=== PATIENT | female | born 1985 | race Caucasian/White ===

== ENCOUNTER 2019-08-06 14:31 | Emergency (ER) | payer OTHER, SELFPAY ==
--- NOTE | 2019-08-06 15:19 | ED.ABDPAIN ---
HPI - Abdominal Pain General Chief Complaint: Nausea/Vomiting/Diarrhea Stated Complaint: N/V Time Seen by Provider: 08/06/19 14:41 Source: patient Mode of arrival: ambulatory Limitations: no limitations History of Present Illness HPI narrative: Patient is a 33-year-old female who presents to emergency department for evaluation of nausea and vomiting that began this morning with several episodes of each patient denies any pain fever similar occurrence. Patient attempted Zofran with no improvement patient on arrival notes some mild dyspepsia but denies other complaints. Related Data Allergies Allergy/AdvReac Type Severity Reaction Status Date / Time azithromycin Allergy Unknown Verified 08/06/19 15:26 Review of Systems Review of Systems: All systems reviewed & are unremarkable except as noted in HPI and below PMFSH Social History Social History (Updated 08/06/19 @ 15:20 by Pranay Burks PA-C) Smoking status: Never smoker Gender identity (if verbalized by the patient): Female Exam Narrative: Exam Narrative: GENERAL: Well-appearing, well-nourished, and in no acute distress. HEAD: Normocephalic, atraumatic. EYES: PERRLA and EOMI. ENT: Nares clear, no rhinorrhea or epistaxis. Mucous membranes moist. Oropharynx without tonsillar hypertrophy exudate or other lesions. CHEST: Clear to auscultation. No respiratory distress. No wheezes rales or rhonchi HEART: Regular rate and rhythm. No murmur heard. Normal peripheral pulses. ABDOMEN: Soft, nontender, nondistended EXTREMITIES: Normal range of motion. No edema. SKIN: Warm, dry, no rash. NEURO: No focal deficits. Alert and oriented x3. PSYCH: Normal mood and affect. Course Course Emergency Course: Patient in the room in no distress aware of case findings treatment plan and diagnosis resting comfortably in the room tolerating p.o. intake denying any pain Vital Signs Vital signs: Vital Signs Temperature 100 F H 08/06/19 15:23 Pulse Rate 102 H 08/06/19 15:23 Respiratory Rate 17 08/06/19 15:23 Blood Pressure 127/91 H 08/06/19 15:23 Pulse Oximetry 100 08/06/19 15:23 Temperature 100 F H 08/06/19 15:23 Pulse Rate 89 08/06/19 17:37 Respiratory Rate 16 08/06/19 17:37 Blood Pressure 129/92 H 08/06/19 17:37 Pulse Oximetry 99 08/06/19 17:37 MDM - Abdominal Pain MDM Narrative Medical decision making narrative: Patient in the room afebrile nontoxic-appearing no distress in the room without any high risk changes in the blood work tolerating p.o. intake felt appropriate for outpatient reevaluation patient resting comfortably as noted provided with reasons to return Lab Data Result diagrams: 08/06/19 15:33 08/06/19 15:33 Labs: Lab Results 08/06/19 08/06/19 08/06/19 Range/Units 15:33 15:33 16:50 WBC 8.4 (4.5-10.0) K/mm3 RBC 4.01 L (4.2-5.4) M/mm3 Hgb 13.6 (12.0-15.0) g/dL Hct 40.0 (37.0-47.0) % MCV 99.8 (80-100) fl MCH 33.9 (26-34) pg MCHC 34.0 (32-36) g/dl RDW 14.8 H (11.5-14.5) % Plt Count 271 (150-375) k/mm3 MPV 10.2 (7.4-10.4) fl Immature Gran % (Auto) 0.2 (0-0.5) % Neut % (Auto) 85.8 H (45.5-73.1) % Lymph % (Auto) 7.5 L (18.3-44.2) % [place] % (Auto) 5.5 (2.6-8.5) % Eos % (Auto) 0.0 (0-4.4) % Baso % (Auto) 1.0 (0.2-1.2) % Lymph # (Auto) 0.63 L (0.9-3.2) K/mm3 [place] # (Auto) 0.5 (0.1-0.6) K/mm3 Eos # (Auto) 0.0 (0-0.3) K/mm3 Baso # (Auto) 0.1 (0.0-0.1) K/mm3 Abs Immat Gran (auto) 0.02 (0.00-0.031) K/mm3 Absolute Neuts (auto) 7.2 H (1.3-6.7) K/mm3 Absolute Nucleated RBC 0.0 (0.0-0.012) K/mm3 Nucleated RBC % 0.0 (0.0-0.2) % Sodium 137 (137-145) mmol/L Potassium 3.2 L (3.4-5.0) mmol/L Chloride 99 (98-107) mmol/L Carbon Dioxide 24 (22-30) mmol/L BUN 3 L (7-17) mg/dL Creatinine 0.50 L (0.7-1.0) mg/dL Estim Creat Clear Calc 148 ml/min Estimated GFR > 60
[2019-08-06] MEDS: FAMOTIDINE 20 MG/2 ML VIAL IV PUSH (15:22)
[2019-08-06] MEDS: ONDANSETRON INJ 4 MG/2 ML VIAL IV PUSH (15:22)
[2019-08-06] MEDS: SODIUM CHLORIDE 0.9% IV 1,000 ML 999 ML IV CONT (15:22)
[2019-08-06 15:23] VITALS: BP 127/91; PULSE 102; RESP 17; TEMP 37.7; O2SAT 100
[2019-08-06 15:42] LABS: Basophils Absolute Auto 0.1 K/mm3 (0.0-0.1); Hemoglobin 13.6 g/dL (12.0-15.0); Immature Granulocyte Absolute 0.02 K/mm3 (0.00-0.031); Immature Granulocyte Percent A 0.2 % (0-0.5); Lymphocytes Absolute Auto 0.63 K/mm3 (0.9-3.2); Lymphocytes Percent Auto 7.5 % (18.3-44.2); Mean Corpuscular Hemoglobin 33.9 pg (26-34); Mean Corpuscular Volume 99.8 fl (80-100); Mean Platelet Volume 10.2 fl (7.4-10.4); Monocytes Absolute Auto 0.5 K/mm3 (0.1-0.6); Monocytes Percent Auto 5.5 % (2.6-8.5); Neutrophils Absolute Auto 7.2 K/mm3 (1.3-6.7); Neutrophils Percent Auto 85.8 % (45.5-73.1); Platelet Count Result 271 k/mm3 (150-375); Red Blood Count 4.01 M/mm3 (4.2-5.4); Red Cell Distribution Width 14.8 % (11.5-14.5); White Blood Count 8.4 K/mm3 (4.5-10.0)
--- NOTE | 2019-08-06 15:47 | PC.NURSE ---
Pt collected urine sample but dropped it on the floor when bringing it back to room. states she will attempt to collect another sample shortly.
[2019-08-06 15:56] LABS: Albumin Level 4.7 g/dL (3.5-5.1)
[2019-08-06 15:57] LABS: Alkaline Phosphatase 91 U/L (38-126); Aspartate Amino Transferase 58 U/L (14-36); Blood Urea Nitrogen 3 mg/dL (7-17); Calcium 9.2 mg/dL (8.4-10.2); Carbon Dioxide 24 mmol/L (22-30); Chloride 99 mmol/L (98-107); Estimated CRCL calculation 148 ml/min; Estimated Glomerular Filt Rate > 60; Glucose 132 mg/dL (65-105); Lipase 105 U/L (23-300); Potassium 3.2 mmol/L (3.4-5.0); Sodium 137 mmol/L (137-145)
[2019-08-06 16:03] LABS: Alanine Aminotransferase 47 U/L (4-35)
[2019-08-06 16:37] VITALS: BP 129/96; PULSE 95; RESP 18; O2SAT 100
[2019-08-06 17:03] LABS: Add Urine Microscopic? NO; Appearance Urine Clear (Clear); Bilirubin Urine Negative (Negative); Blood Urine Negative (Negative); Color Urine Yellow (Yellow); Glucose Urine UA Negative (Negative); Ketones Urine Negative (Negative); Leukocyte Esterase Ur Negative LEU/UL (Negative); Nitrate Urine Negative (Negative); Protein Urine Negative (Negative); Specific Grav Ur 1.015 (1.001-1.035); Urobilinogen Urine Negative mg/dL (<2.0)
--- NOTE | 2019-08-06 17:22 | PC.NURSE ---
Pt tolerating PO challenge well, denies further nausea.
[2019-08-06 17:23] VITALS: BP 119/82; PULSE 93; RESP 18; O2SAT 99
[2019-08-06 17:37] VITALS: BP 129/92; PULSE 89; RESP 16; O2SAT 99
[2019-08-06] MEDS: ONDANSETRON INJ 4 MG/2 ML VIAL (18:01)
--- NOTE | 2019-08-06 18:01 | PC.NURSE ---
PT GIVEN ZOFRAN AT THIS TIME PRIOR TO D/C PER VERBAL ORDER FROM JOSSELYN HUNTER FOR NAUSEA. NEEMA HUNTER AT BEDSIDE AT THIS TIME.
[2019-08-06 18:02] VITALS: BP 129/89; PULSE 89; RESP 16; O2SAT 100
--- NOTE | 2019-08-10 18:43 | PC.NURSE ---
LATE ENTRY This note is being entered to document information to the patient's record. The following information was omitted on [08/06/2019], by [CESARIO]. NS COMPLETE AT 1622.
== END 2019-08-06 18:02 | disposition home or self-care (01) ==
PROVIDERS: Emergency Medicine Emergency Medical Services; Emergency Provider Emergency Medicine; PCP Emergency Medicine
DX: R11.2 Nausea with vomiting, unspecified (principal)
CPT/HCPCS: 36415; 80053; 81003; 83690; 85025; 87804; 96361; 96374; 96375; 96376; 99284; J2405; J7030

== ENCOUNTER 2019-08-25 13:32 | Emergency (ER) | payer OTHER, SELFPAY ==
[2019-08-25 13:55] VITALS: BP 121/98; PULSE 108; RESP 20; TEMP 37.6; O2SAT 99
--- NOTE | 2019-08-25 14:21 | ED.GENADULT ---
HPI - General Adult General Chief complaint: Upper Respiratory Infection Stated complaint: Cough/Wheezing/Pain w/breathing Time Seen by Provider: 08/25/19 14:21 Source: patient and RN notes reviewed Mode of arrival: ambulatory Limitations: no limitations History of Present Illness HPI narrative: 33-year-old female presents with complains of upper respiratory infection symptoms, sore throat, nausea, and cough for 1 day. Advil and Zofran without relief. Constant dry cough with intermittent productive cough (green phlegm). Rhinorrhea and nasal congestion. Sore throat is intermittently and bilateraly. Hurts to swallow. No voice changes. No high fevers, drooling, neck or throat swelling. No chest pain, wheezing, or shortness of breath. Exacerbation factors consists of smoke exposure. Nausea without vomiting and abdominal pain. Tolerating liquids well. Valorie denies being , LMP 07/26/2019. Some parts of this dictation were generated by voice recognition software and may contain typographical and/or grammatical inaccuracies. Related Data Allergies Allergy/AdvReac Type Severity Reaction Status Date / Time azithromycin Allergy Unknown Verified 08/25/19 13:54 Review of Systems Review of Systems: Narrative: CONSTITUTIONAL: Denies fever, chills, sweats. EYES: Denies visual changes, redness, discharge. ENT: Complains of rhinorrhea, congestion, sore throat. Denies otalgia. CARDIOVASCULAR: Denies chest pain, palpitations, edema. RESPIRATORY: Denies dyspnea, wheezing. Complains of dry cough, intermittent productive cough. GASTROINTESTINAL: Denies abdominal pain, vomiting, diarrhea. Complains of nausea. GENITOURINARY: Denies dysuria, hematuria, abnormal discharge. SKIN: Denies rash or itching. MUSCULOSKELETAL: Denies acute back pain, joint pain, or myalgia. NEUROLOGIC: Denies numbness or focal weakness. PSYCHIATRIC: Denies anxiety or depression. All systems reviewed & are unremarkable except as noted in HPI and below. [facility] Past Medical History Medical History (Updated 08/26/19 @ 00:00 by Background Dajessica) Anxiety Chronic sinus infection Depression History of gastroesophageal reflux (GERD) Surgical History Surgical History (Updated 08/25/19 @ 14:39 by RAMANDEEP May) No significant past surgical history Family History Family History (Updated 08/25/19 @ 14:40 by RAMANDEEP May) Mother Lung cancer Father , Patient said was murdered found out doing autopsy he had cancer Cancer Social History Social History (Updated 08/25/19 @ 14:41 by RAMANDEEP May) Smoking packs per day: 0.25 Smoking cigarettes per day: 5.0 Years smoked: 18 Smoking pack-years: 4.50 Smoking status: Current every day smoker Second hand tobacco smoke exposure: Yes Alcohol intake: current Substance use: current Substance use type: marijuana Living arrangements: with family Occupation/Education: occupation Gender identity (if verbalized by the patient): Female Comments At time of signature, agree with nurse past medical, surgical, social, and family history. There is no relevant family history pertinent to the presenting complaint. Exam Narrative: Exam Narrative: GENERAL: This is a well-nourished, well-developed patient, in no apparent distress. Talks in full sentences and ambulates with steady gait without dyspnea. HEAD: normocephalic, atraumatic. EYES: PERRL. Sclera clear/white. Vision is grossly intact. EARS: External ears normal, auditory canals clear and without drainage, TMs normal without perforation. Hearing grossly intact. NOSE: External nose normal with no obvious nasal discharge, nares with moderate redness and enlarged turbinates, clear rhinorrhea. THROAT: Mucous membranes moist, posterior pharynx with PND, mild erythema, no exudate, and normal tonsils. No drainage, no concern for Peritonsillar abscess. No drooling, trismus, or neck swelling. NECK:
[2019-08-25 14:46] VITALS: PULSE 89; RESP 20; O2SAT 99
== END 2019-08-25 14:44 | disposition home or self-care (01) ==
PROVIDERS: Emergency Provider Nurse Practitioner Family; PCP Emergency Medicine
DX: J40 Bronchitis, not specified as acute or chronic (principal); F17.210 Nicotine dependence, cigarettes, uncomplicated; K21.9 Gastro-esophageal reflux disease without esophagitis
CPT/HCPCS: 87804; 99213; G0463

== ENCOUNTER 2019-11-25 19:15 | Observation (INO) | payer OTHER, SELFPAY ==
--- NOTE | ~2019-11-25 | CT_ITS ---
EXAMINATION: CT abdomen pelvis w con EXAM DATE: 11/25/2019 21:33 INDICATION: Vomiting, diarrhea, elevated lipase. TECHNIQUE: Spiral CT of the abdomen and pelvis was performed following intravenous injection of 100 m L Omnipaque 350. Axial, coronal and sagittal images were reviewed. The dose-length product (DLP) fo r this examination was 265.93 mGy-cm. The exposure was tailored according to patient size (auto mA e xposure control), and iterative reconstruction (ASIR) was used as additional dose reduction technique . Comparison is made to prior examination from 09/06/2018. FINDINGS: There is hepatic steatosis without suspicious focal lesion identified. Spleen, adrenal glan ds, pancreas are unremarkable. There are punctate cholelithiasis. No biliary dilation. Portal and s plenic veins are patent. Kidneys enhance symmetrically. There is no hydronephrosis. The uterus is anteverted and morphologically normal. The bladder is unremarkable. There is no retroperitoneal o r pelvic lymphadenopathy. The appendix is normal. The stomach and small bowel are unremarkable. Possible mild colitis with mi ldly edematous appearing colonic wall No free intraperitoneal gas. The heart is normal in size. There are no pericardial or pleural effusions. Partially calcified left thyroid lobe benign nodule u nchanged. There are no osteoblastic or osteolytic lesions identified. IMPRESSION: 1. Possible mild colonic colitis, clinical correlation. 2. Hepatic steatosis. Reviewed, dictated and finalized at location A.
[2019-11-25 19:21] VITALS: BP 123/89; PULSE 106; RESP 16; TEMP 36.6; O2SAT 100
[2019-11-25 19:52] LABS: Basophils Absolute Auto 0.1 K/mm3 (0.0-0.1); Basophils Percent Auto 0.7 % (0.2-1.2); Eosinophils Absolute Auto 0.2 K/mm3 (0-0.3); Eosinophils Percent Auto 1.5 % (0-4.4); Immature Granulocyte Absolute 0.07 K/mm3 (0.00-0.031); Immature Granulocyte Percent A 0.5 % (0-0.5); Lymphocytes Absolute Auto 1.94 K/mm3 (0.9-3.2); Lymphocytes Percent Auto 12.8 % (18.3-44.2); Mean Corpuscular HGB Conc 35.9 g/dl (32-36); Mean Corpuscular Hemoglobin 35.9 pg (26-34); Mean Platelet Volume 10.7 fl (7.4-10.4); Neutrophils Absolute Auto 10.8 K/mm3 (1.3-6.7); Neutrophils Percent Auto 71.5 % (45.5-73.1); Platelet Count Result 346 k/mm3 (150-375); Red Cell Distribution Width 18.4 % (11.5-14.5); White Blood Count 15.1 K/mm3 (4.5-10.0)
[2019-11-25 20:07] LABS: Albumin Level 4.8 g/dL (3.5-5.1); Alkaline Phosphatase 103 U/L (38-126); Aspartate Amino Transferase 128 U/L (14-36); Bilirubin,Total 0.9 mg/dL (0.2-1.3); Blood Urea Nitrogen 3 mg/dL (7-17); Calcium 8.3 mg/dL (8.4-10.2); Carbon Dioxide 30 mmol/L (22-30); Chloride 85 mmol/L (98-107); Estimated Glomerular Filt Rate > 60; Glucose 126 mg/dL (65-105); Potassium 2.6 mmol/L (3.4-5.0); Sodium 131 mmol/L (137-145)
[2019-11-25 20:11] LABS: Alanine Aminotransferase 34 U/L (4-35)
[2019-11-25 20:12] LABS: Lipase 2318 U/L (23-300)
--- NOTE | 2019-11-25 20:48 | PC.NURSE ---
Called lab to add on PT INR PTT MG
[2019-11-25 21:01] LABS: Prothrombin Time 13.3 Seconds (11.1-14.7)
[2019-11-25 21:02] LABS: Partial Thromboplastin Time 26.6 SECONDS (22.3-36.8)
[2019-11-25 21:05] LABS: Magnesium 0.9 mg/dL (1.6-2.3)
--- NOTE | 2019-11-25 21:11 | ED.NAVMDI ---
HPI - Nausea/Vomiting/Diarrhea General Chief complaint: Nausea/Vomiting/Diarrhea Stated complaint: diarrhea Time Seen by Provider: 11/25/19 20:08 Source: patient Mode of arrival: ambulatory Limitations: no limitations History of Present Illness HPI Narrative: This patient is a 34 year old female who presents for evaluation of nausea, vomiting and diarrhea. Patient states she has has been vomiting daily for 2-3 weeks. She has been unable to keep any thing down except occasional water. She also reports daily nonbloody diarrhea. She has been taking oral zofran, antidiarrhea , and probiotics without relief. She states she thought her symptoms were due to her alcoholism so she drank a couple of shots of alcohol yesterday. Prior to yesterday she states she has not drank in 2 days. She states she has been cutting back on her alcohol intake. She denies fever, chills, abdominal pain. She also denies recent antibiotics use. MD elicited complaint: nausea, vomiting and diarrhea Pertinent past history: alcohol abuse Associated nausea: Yes Associated abdominal pain: No Location of pain: none Related Data Home Medications Medication Instructions Recorded Confirmed cetirizine [Zyrtec] 20 mg PO HS 11/26/19 11/26/19 chlordiazepoxide HCl 5 mg PO Q8H PRN 11/26/19 11/26/19 fluticasone propionate [Flonase 1 spray [facility] 11/26/19 11/26/19 Allergy Relief] fluticasone propionate [Flonase 2 spray [facility] HS 11/26/19 11/26/19 Allergy Relief] loperamide 2 mg PO Q6H PRN 11/26/19 11/26/19 magnesium 500 mg PO DAILY 11/26/19 11/26/19 ondansetron HCl [Zofran] 4 mg PO Q6H PRN 11/26/19 11/26/19 potassium chloride 20 meq PO DAILY 11/26/19 11/26/19 Allergies Allergy/AdvReac Type Severity Reaction Status Date / Time azithromycin Allergy Intermediate Rash Verified 11/26/19 04:00 Review of Systems Review of Systems: All systems reviewed & are unremarkable except as noted in HPI and below Constitutional: Constitutional: Denies chills and Denies fever(s) Gastrointestinal: Gastrointestinal: Denies abdominal pain, Reports diarrhea, Reports nausea and Reports vomiting Genitourinary: Genitourinary: Denies hematuria and Denies flank pain Musculoskeletal: Musculoskeletal: Denies back pain Psychiatric: Psychiatric: Reports anxiety PMFSH Past Medical History Medical History (Updated 11/26/19 @ 06:09 by Yadira Hall MD) Alcoholism Hypokalemia Family History Family History (Updated 11/26/19 @ 00:19 by Brandan Bustillos RN) Mother Cancer of lung Cerebrovascular accident Father Heart attack Mother No problems noted. Other No problems noted. Social History Social History (Updated 11/25/19 @ 21:12 by Yadira Hall MD) Smoking packs per day: 1 Smoking cigarettes per day: 20.0 Years smoked: 19 Smoking pack-years: 19.00 Smoking status: Current every day smoker Tobacco type: cigarettes Alcohol intake: current Drinks per week: 14 Alcohol use details: alcoholic Substance use: never Gender identity (if verbalized by the patient): Female Spiritual care concerns: No Exam Narrative: Exam Narrative: GENERAL: Well-appearing, well-nourished, and in no acute distress. HEAD: Normocephalic, atraumatic EYES: PERRLA and EOMI, conjunctiva clear without discharge EARS: TM's clear bilaterally without erythema or dullness NOSE: Nares clear, no rhinorrhea or epistaxis THROAT:Mucous membranes moist, Oropharynx normal without erythema, exudate, peritonsillar swelling or fluctuance NECK: Supple, without lymphadenopathy or mass RESPIRATORY: No respiratory distress, Airway patent, Respirations non-labored, Clear to auscultation without rales, rhonchi or wheeze HEART: Regular rate and rhythm. No murmur heard. Normal peripheral pulses. ABDOMEN: Soft, nontender, nondistended, normal active bowel sounds. No masses. No rebound or guarding, No organomegaly. EXTREMITIES: No edema, normal stre
[2019-11-25 21:14] LABS: Add Urine Microscopic? YES; Amorphous Sediment Urine Few; Appearance Urine Cloudy (Clear); Bacteria Urine Trace /hpf; Bilirubin Urine Negative (Negative); Blood Urine 1+ (Negative); Color Urine Yellow (Yellow); Glucose Urine UA Negative (Negative); Hyaline Casts Urine 20-29 /lpf; Ketones Urine Negative (Negative); Leukocyte Esterase Ur 2+ LEU/UL (Negative); Mucus Urine Rare /lpf; Nitrate Urine Negative (Negative); Protein Urine 1+ mg/dL (Negative); Specific Grav Ur 1.013 (1.001-1.035); Squamous Epithelial Cell Urine Many /hpf (Few); Urobilinogen Urine Negative mg/dL (<2.0); WBC Urine 21-30 /hpf
[2019-11-25] MEDS: ONDANSETRON INJ 4 MG/2 ML VIAL IV PUSH (21:54)
[2019-11-25] MEDS: LACTATED RINGERS 1,000 ML 999 ML IV CONT (21:54)
[2019-11-25 21:55] VITALS: BP 119/91; BP 120/93; PULSE 102; PULSE 87
[2019-11-25 21:57] VITALS: BP 109/86; PULSE 103
--- NOTE | 2019-11-25 22:02 | ECG_ITS ---
Measurements Intervals [place] Rate: 89 P: 55 AL: 120 QRS: 28 QRSD: 102 T: -56 QT: 439 QTc: 536 Interpretive Statements SINUS RHYTHM POSSIBLE LEFT ATRIAL ENLARGEMENT LOW QRS VOLTAGE IN PRECORDIAL LEADS ST-T WAVE ABNORMALITY IN ANTEROLATERAL LEADS- CONSIDER ISCHEMIA BASELINE ARTIFACT- I, II, AVR, V2 ABNORMAL ECG Electronically Signed On 11-26-2019 6:43:32 CDT by Alex Santiago D.O.
[2019-11-25 23:00] VITALS: BP 104/78; PULSE 79; RESP 18; TEMP 36.6; O2SAT 100; BMI 23.3
--- NOTE | 2019-11-25 23:54 | ADMGEN ---
This patient, Valorie Garcia, was admitted to [facility] Surg Room 305-01. Patient/family oriented to hospital policies and general routines including ID bracelet, bed and alarms, visiting hours, pain management, procedures, bathroom and other care routines, personal items, smoking policy, room service/diet, and visiting hours. Valuables list has been completed. Information on how to activate the Rapid Response Team has been discussed. Patient/Family are encouraged to report perceived risks to care and to ask questions if they do not understand what they are told or what they should do.
[2019-11-26] VITALS (10 sets, daily range): BP systolic 78–110; BP diastolic 50–59; PULSE 80–99; RESP 16; TEMP 36.3–37.1; O2SAT 99–100; BMI 23.3
[2019-11-26] MEDS: MAGNESIUM SULF 2 GM/WATER 50ML 2 GM/50 ML BAG IVPB (03:50)
[2019-11-26] MEDS: CHLORDIAZEPOXIDE 5 MG CAPSULE PO (04:46)
[2019-11-26] MEDS: LORATADINE 10 MG TABLET PO ×2 (05:14→23:40)
[2019-11-26 06:11] LABS: Basophils Absolute Auto 0.1 K/mm3 (0.0-0.1); Basophils Percent Auto 0.5 % (0.2-1.2); Eosinophils Absolute Auto 0.3 K/mm3 (0-0.3); Eosinophils Percent Auto 3.4 % (0-4.4); Hematocrit 31.2 % (37.0-47.0); Immature Granulocyte Absolute 0.04 K/mm3 (0.00-0.031); Immature Granulocyte Percent A 0.4 % (0-0.5); Lymphocytes Absolute Auto 1.85 K/mm3 (0.9-3.2); Lymphocytes Percent Auto 19.4 % (18.3-44.2); Mean Corpuscular HGB Conc 35.3 g/dl (32-36); Mean Corpuscular Hemoglobin 35.8 pg (26-34); Mean Corpuscular Volume 101.6 fl (80-100); Mean Platelet Volume 10.7 fl (7.4-10.4); Monocytes Absolute Auto 1.2 K/mm3 (0.1-0.6); Monocytes Percent Auto 12.4 % (2.6-8.5); Neutrophils Absolute Auto 6.1 K/mm3 (1.3-6.7); Neutrophils Percent Auto 63.9 % (45.5-73.1); Platelet Count Result 228 k/mm3 (150-375); Red Blood Count 3.07 M/mm3 (4.2-5.4); Red Cell Distribution Width 17.9 % (11.5-14.5); White Blood Count 9.5 K/mm3 (4.5-10.0)
[2019-11-26 06:19] LABS: Calcium 7.2 mg/dL (8.4-10.2); Carbon Dioxide 29 mmol/L (22-30); Chloride 90 mmol/L (98-107); Estimated CRCL calculation 97 ml/min; Estimated Glomerular Filt Rate > 60; Glucose 116 mg/dL (65-105); Potassium 2.5 mmol/L (3.4-5.0); Sodium 129 mmol/L (137-145)
[2019-11-26 06:38] LABS: Blood Urea Nitrogen < 2 mg/dL (7-17)
[2019-11-26] MEDS: LACTATED RINGERS 1,000 ML 125 ML IV CONT ×2 (08:49→22:59)
[2019-11-26] MEDS: POTASSIUM CHLORIDE 20 MEQ PACKET (FOR LIQUID) 40 MEQ PO ×2 (08:50→10:34)
[2019-11-26] MEDS: FLUTICASONE PROPIONATE 0.05% NA SPR 16 GM BTL (*BKC) 1 SPRAY NASAL (08:50)
[2019-11-26] MEDS: PANTOPRAZOLE SODIUM IV 40 MG VIAL IV PUSH (08:51)
[2019-11-26] MEDS: POTASSIUM CHLORIDE 20 MEQ PACKET (FOR LIQUID) PO (08:51)
--- NOTE | 2019-11-26 11:43 | PM.IMHP ---
H&P: HPI History of Present Illness Chief complaint: Vomiting and diarrhea Narrative: Date of Service 11/26/2019 1115 The supervising physician for this history and physical is Dr Daiana Gibbs. Ms. Garcia is a 34yo F with history of alcohol use disorder and anxiety with panic attacks presented to the ED for evaluation of vomiting and diarrhea. She noted she has been vomiting daily, sometimes multiple times per day for the last 3 to 4 weeks. She describes some intermittent upper abdominal pain. She also describes nonbloody diarrhea over the last few weeks as well. She denies chest pain or shortness of breath. She reports she has already eaten breakfast this morning and denies feeling nauseous. She reports a history of excess alcohol use previously drinking 14 shots of whiskey daily, now has cut back to 2 to [address] abdomen demonstrates mild colitis. Lipase 2318. Potassium was as low as 2.5 this morning and being replaced orally and IV. She is being admitted for colitis and hypokalemia. Patient is adamant about discharging today. Discussed the reasons why it would be safest to keep her overnight to monitor electrolytes and lipase in AM, monitor for symptoms. Risks of leaving against medical advice were discussed. She is agreeable to staying overnight. Review of Systems Review of Systems: Narrative: Nausea, vomiting, and nonbloody diarrhea. No nausea today after eating. No chest pain or shortness of breath. Upper abdominal discomfort. No headaches, speech, or vision changes. No dark black or red bloody stools or emesis. Twelve systems were reviewed with pertinent positives and negatives as per HPI. Except as documented, all other systems were reviewed and are negative. [facility] Past Medical History Medical History (Updated 11/26/19 @ 17:28 by Alix Burr PA-C) Alcoholism Hypokalemia Panic attacks Family History Family History Mother Cancer of lung Cerebrovascular accident Father Heart attack Mother No problems noted. Other No problems noted. Social History Social History (Updated 11/26/19 @ 17:15 by Alix Burr PA-C) Social History: Ms. 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 She reports previously drinking around 14 shots per day of Fireball whiskey and has now cut back to 2 to 4 shots daily. She is smoking 1 half pack per day of cigarettes since age 15 years old. She denies other substance use. Her PCP is Dr Stevenson. She is full code status. Smoking packs per day: 1 Smoking cigarettes per day: 20.0 Years smoked: 19 Smoking pack-years: 19.00 Smoking status: Current every day smoker Tobacco type: cigarettes Alcohol intake: current Drinks per week: 14 Alcohol use details: alcoholic Substance use: never Occupation/Education: occupation Gender identity (if verbalized by the patient): Female Spiritual care concerns: No Meds Home Medications and Allergies Home Medications Medication Instructions Recorded Confirmed Type cetirizine [Zyrtec] 20 mg PO HS 11/26/19 11/26/19 History chlordiazepoxide HCl 5 mg PO Q8H PRN 11/26/19 11/26/19 History fluticasone propionate [Flonase 1 spray [facility] 11/26/19 11/26/19 History Allergy Relief] fluticasone propionate [Flonase 2 spray [facility] 11/26/19 11/26/19 History Allergy Relief] loperamide 2 mg PO Q6H PRN 11/26/19 11/26/19 History magnesium 500 mg PO DAILY 11/26/19 11/26/19 History ondansetron HCl [Zofran] 4 mg PO Q6H PRN 11/26/19 11/26/19 History potassium chloride 20 meq PO DAILY 11/26/19 11/26/19 History Allergies Allergy/AdvReac Type Severity Reaction Status Date / Time azithromycin Allergy Intermediate Rash Verified 11/26/19 04:00 Vital Signs Last Vital Signs Temp 97.4 F L 11/26/19 14:48 Pulse 88 11/26/19 16:00 Resp 16 11/26/19 14:48 BP 78/50 L 11/26/19 14:48
[2019-11-26 12:46] LABS: Calcium 7.7 mg/dL (8.4-10.2); Carbon Dioxide 28 mmol/L (22-30); Chloride 99 mmol/L (98-107); Estimated CRCL calculation 97 ml/min; Estimated Glomerular Filt Rate > 60; Glucose 120 mg/dL (65-105); Potassium 4.3 mmol/L (3.4-5.0); Sodium 135 mmol/L (137-145)
[2019-11-26 12:48] LABS: Blood Urea Nitrogen < 2 mg/dL (7-17)
[2019-11-26] MEDS: LACTATED RINGERS 500 ML 999 ML IV CONT (14:30)
[2019-11-26] MEDS: FLUTICASONE PROPIONATE 0.05% NA SPR 16 GM BTL (*BKC) 2 SPRAY NASAL (21:04)
[2019-11-26] MEDS: ENOXAPARIN 40 MG/0.4 ML SYRINGE SUB-Q (21:04)
[2019-11-26] MEDS: SODIUM CHLORIDE 0.9% IV 500 ML IV CONT (22:54)
[2019-11-27] VITALS: BP 89/60; PULSE 82; PULSE 88
[2019-11-27 02:33] VITALS: BP 114/82; PULSE 83
[2019-11-27 04:00] VITALS: PULSE 84
[2019-11-27 05:45] LABS: Basophils Absolute Auto 0.1 K/mm3 (0.0-0.1); Basophils Percent Auto 0.7 % (0.2-1.2); Eosinophils Absolute Auto 0.5 K/mm3 (0-0.3); Eosinophils Percent Auto 5.6 % (0-4.4); Hematocrit 31.3 % (37.0-47.0); Hemoglobin 10.6 g/dL (12.0-15.0); Immature Granulocyte Absolute 0.04 K/mm3 (0.00-0.031); Immature Granulocyte Percent A 0.4 % (0-0.5); Lymphocytes Absolute Auto 1.81 K/mm3 (0.9-3.2); Lymphocytes Percent Auto 20.2 % (18.3-44.2); Mean Corpuscular HGB Conc 33.9 g/dl (32-36); Mean Corpuscular Hemoglobin 35.2 pg (26-34); Mean Platelet Volume 10.4 fl (7.4-10.4); Monocytes Percent Auto 11.6 % (2.6-8.5); Neutrophils Absolute Auto 5.5 K/mm3 (1.3-6.7); Neutrophils Percent Auto 61.5 % (45.5-73.1); Platelet Count Result 229 k/mm3 (150-375); Red Blood Count 3.01 M/mm3 (4.2-5.4); Red Cell Distribution Width 17.7 % (11.5-14.5)
[2019-11-27 06:00] VITALS: BP 99/66; PULSE 74; RESP 16; TEMP 36.5; O2SAT 100
[2019-11-27 06:03] LABS: Alanine Aminotransferase 15 U/L (4-35); Albumin Level 2.7 g/dL (3.5-5.1); Alkaline Phosphatase 65 U/L (38-126); Aspartate Amino Transferase 37 U/L (14-36); Bilirubin,Total 0.3 mg/dL (0.2-1.3); Carbon Dioxide 27 mmol/L (22-30); Chloride 102 mmol/L (98-107); Estimated CRCL calculation 114 ml/min; Estimated Glomerular Filt Rate > 60; Glucose 100 mg/dL (65-105); Magnesium 1.2 mg/dL (1.6-2.3); Phosphorus 2.6 mg/dL (2.5-4.5); Potassium 3.1 mmol/L (3.4-5.0); Sodium 135 mmol/L (137-145)
[2019-11-27 06:08] LABS: Blood Urea Nitrogen < 2 mg/dL (7-17)
[2019-11-27] MEDS: FLUTICASONE PROPIONATE 0.05% NA SPR 16 GM BTL (*BKC) 1 SPRAY NASAL (08:22)
[2019-11-27] MEDS: PANTOPRAZOLE SODIUM IV 40 MG VIAL IV PUSH (08:22)
[2019-11-27] MEDS: POTASSIUM CHLORIDE 20 MEQ PACKET (FOR LIQUID) PO (08:25)
[2019-11-27 08:53] LABS: Lipase 2216 U/L (23-300)
--- NOTE | 2019-11-27 10:24 | PM.DS ---
DS: Admitting Diagnosis Admitting Diagnosis Admitting Diagnosis: Noninfective gastroenteritis and colitis, unspecified DS: Discharge Diagnosis Discharge Diagnosis (1) Colitis: Code(s): K52.9 - Noninfective gastroenteritis and colitis, unspecified Status: Acute Assessment and Plan: Date of Service 11/27/19 Ms. Garcia is a 34yo F with history of alcohol use disorder who presented to the ED for evaluation of vomiting and diarrhea x [address] abdomen demonstrated a mild colitis and she was started on IV antibiotics with Zosyn. She was discharged with oral antibiotics to complete the course. Lipase was elevated but pancreas was unremarkable on imaging; elevated lipase may have been reactive from recent vomiting. She was tolerating a diet and had no vomiting during this admission. Diarrhea was nonbloody, sent for culture which have come back negative. She was very eager to discharge and wanting to leave AMA but opted to stay overnight to continue treatment of her hypokalemia and dehydration. Potassium and magnesium were aggressively replaced. She was treated supportively with IV fluids and antiemetics. She described drinking around 2 to 4 shots daily of whiskey, decreased from her previous 14 shots per day. No acute withdrawal here. She was educated on the importance of alcohol cessation. She was feeling improved with the therapy outlined above and was hemodynamically stable for discharge 11/27/19. She was instructed to follow up with PCP in 1 week and discussed that if her symptoms persist after antibiotic treatment, she may benefit from GI referral given the duration of her symptoms. Patient presents with diarrhea and vomiting for multiple weeks. CT abdomen demonstrates a mild colitis Stool studies pending. Continue IV zosyn today and monitor for symptoms. Lipase is 2300 may be secondary to vomiting since pancreas is unremarkable on imaging. Continue supportive care with antiemetics and IV hydration. Patient wants to be discharged. She is agreeable for follow up with PCP for possible GI referral if symptoms persist after antibiotics are completed. (2) Dehydration: Code(s): E86.0 - Dehydration Status: Acute Assessment and Plan: Secondary to GI symptoms. Treated with IV hydration; encouraged oral fluids at discharge. (3) Hypokalemia: Code(s): E87.6 - Hypokalemia Status: Acute Assessment and Plan: As low as 2.5 and replaced oral and IV. Discharged with oral supplementation and repeat outpatient labs. (4) Hypomagnesemia: Code(s): E83.42 - Hypomagnesemia Status: Acute Assessment and Plan: As low as 0.9 and replaced IV. Discharged with oral supplementation and repeat outpatient labs. (5) Alcoholism: Code(s): F10.20 - Alcohol dependence, uncomplicated Status: Chronic Assessment and Plan: No evidence of acute withdrawal. CIWA monitoring. She was maintained on her home PRN Librium. DS: Summary Time Spent with Patient Time attestation: Total time spent providing and/or coordinating discharge services: 40 minutes Exam Narrative: Exam Narrative: Last Vital Signs Temp 97.7 F 11/27/19 06:00 Pulse 74 11/27/19 06:00 Resp 16 11/27/19 06:00 BP 99/66 L 11/27/19 06:00 Pulse Ox 100 11/27/19 06:00 General: Well-appearing female resting sitting up in bed in no acute distress. HEENT: Normocephalic, atraumatic, EOMI, oral mucosa moist. Neck: Supple. No meningeal signs. Chest: Clear to auscultation all mendez. Respirations even and nonlabored. Tolerating room air. Heart: Heart rate and rhythm regular with S1-S2. No murmur,
--- NOTE | 2019-11-27 10:41 | PC.NURSE ---
Pt has discharge orders. Pt has had IV removed. Discharge paperwork reviewed with pt, and opportunity for questions was provided. Pt exhibited a good understanding of discharge instructions. Pt has all belongings and will be assisted to the front of the building once her ride arrives.
[2019-11-27] MEDS: MAGNESIUM SULFATE 3GM/D5W100ML 3 GM/100 ML BAG IVPB (10:46)
== END 2019-11-27 12:05 | disposition home or self-care (01) ==
LOC: ANHED 20:08 → ANH3MEDSUR 22:08
PROVIDERS: Physician Assistant; Admitting Provider Internal Medicine; Emergency Provider General Practice; PCP Emergency Medicine; Visit Provider Hospitalist
DX: K52.9 Noninfective gastroenteritis and colitis, unspecified (principal); E86.0 Dehydration; E87.6 Hypokalemia; E83.42 Hypomagnesemia; F10.20 Alcohol dependence, uncomplicated; F17.210 Nicotine dependence, cigarettes, uncomplicated; F41.0 Panic disorder [episodic paroxysmal anxiety]
CPT/HCPCS: 36415; 74177; 80048; 80053; 81001; 81025; 83690; 83735; 84100; 85025; 85610; 85730; 87015; 87045; 87046; 87086; 87088; 87269; 87272; 87427; 93005; 96361; 96365; 96366; 96367; 96372; 96375; 99285; A9270; C9113; G0378; G0379; J1650; J2405; J2543; J3475; J3480; J7040; J7120; Q9967

== ENCOUNTER 2019-12-02 14:13 | Outpatient (CLI) | payer OTHER, SELFPAY ==
[2019-12-02 15:29] LABS: Magnesium 0.9 mg/dL (1.6-2.3)
[2019-12-02 15:39] LABS: Lipase 2267 U/L (23-300)
== END 2019-12-02 14:14 | disposition home or self-care (01) ==
PROVIDERS: PCP Emergency Medicine; Visit Provider Physician Assistant
DX: R11.10 Vomiting, unspecified (principal); E87.6 Hypokalemia; E83.42 Hypomagnesemia
CPT/HCPCS: 36415; 83690; 83735

== ENCOUNTER 2019-12-02 14:17 | Outpatient (CLI) | payer OTHER, SELFPAY ==
[2019-12-02 15:46] LABS: Blood Urea Nitrogen 3 mg/dL (7-17); Calcium 7.5 mg/dL (8.4-10.2); Carbon Dioxide 25 mmol/L (22-30); Chloride 98 mmol/L (98-107); Estimated Glomerular Filt Rate > 60; Glucose 110 mg/dL (65-105); Potassium 2.7 mmol/L (3.4-5.0); Sodium 139 mmol/L (137-145)
[2019-12-02 16:32] LABS: Folic Acid 1.9 ng/mL (2.76->20)
== END 2019-12-02 14:18 | disposition home or self-care (01) ==
PROVIDERS: PCP Emergency Medicine; Visit Provider Emergency Medicine
DX: E87.6 Hypokalemia (principal); F10.10 Alcohol abuse, uncomplicated
CPT/HCPCS: 36415; 80048; 82607; 82746

== ENCOUNTER 2019-12-04 14:42 | Outpatient (CLI) | payer OTHER, SELFPAY ==
[2019-12-04 15:27] LABS: Potassium 3.5 mmol/L (3.4-5.0)
== END 2019-12-04 14:43 | disposition home or self-care (01) ==
PROVIDERS: PCP Emergency Medicine; Visit Provider Emergency Medicine
DX: E87.6 Hypokalemia (principal)
CPT/HCPCS: 36415; 84132

== ENCOUNTER 2020-06-25 01:59 | Observation (INO) | payer OTHER, SELFPAY ==
[2020-06-25] VITALS (12 sets, daily range): BP systolic 104–130; BP diastolic 66–90; PULSE 99–139; RESP 16–23; TEMP 36.6–36.8; O2SAT 95–100; BMI 26.1
--- NOTE | ~2020-06-25 | CT_ITS ---
EXAMINATION: CT abdomen pelvis w con DATE: 06/25/2020 05:50 INDICATION: Abdominal pain TECHNIQUE: Computed tomography (CT) of the abdomen and pelvis was performed with 100 mL Omnipaque-350 intravenous contrast. Automated exposure control and iterative reconstruction technique were employe d. The dose-length product was 358.31 mGy-cm. COMPARISON: 11/25/2019 FINDINGS: Centrally calcified nodule consistent with old granulomatous disease with associated bronchoceles in the posterior basilar segment of the right lower lobe. Heart size is normal. No pericardial or pleura l effusion. Small sliding-type hiatal hernia. Diffuse hepatic steatosis with a few geographic regions of focal sparing. Multiple tiny calcified gallstones in the dependent fundus of the normal-appearing gallbladder. Spleen, pancreas, bilateral adrenal glands and right kidney are normal. 6 mm cyst at th e upper pole of the left kidney. Diffuse mild colonic wall thickening consistent with colitis with an ahaustral appearance to the descending and sigmoid colon suggesting sequela of prior colitis. Normal small bowel and appendix. Anteverted uterus, partially decompressed bladder and bilateral adnexa are normal. There is a small amount of free fluid in the pelvis. No abscess or free intraperitoneal gas. No pathologically enlarged abdominal or pelvic lymphadenopathy. Bones are unremarkable. IMPRESSION: 1. Mild diffuse colitis which could be inflammatory, infectious or less likely ischemic in etiology. The ahaustral pattern in the descending and sigmoid colon suggests sequela of an inflammatory bowel d isease with distribution and normal appearance to the terminal ileum favoring ulcerative colitis over Crohn's disease. 2. Cholelithiasis. 3. Diffuse hepatic steatosis. Reviewed, dictated and finalized at location A. FILLER IMPRESSION: 1. Mild diffuse colitis which could be inflammatory, infectious or less likely ischemic in etiology. The ahaustral pattern in the descending and sigmoid colon suggests sequela of an inflammatory bowel disease with distribution and normal appearance to the terminal ileum favoring ulcerative colitis over Crohn's dise ase. 2. Cholelithiasis. 3. Diffuse hepatic steatosis.
[2020-06-25 02:59] LABS: Add Urine Microscopic? YES; Appearance Urine Cloudy (Clear); Bacteria Urine Trace /hpf; Bilirubin Urine 2+ (Negative); Blood Urine Negative (Negative); Color Urine Amber (Yellow); Glucose Urine UA 1+ mg/dL (Negative); Hyaline Casts Urine 50+ /lpf; Ketones Urine Trace mg/dL (Negative); Leukocyte Esterase Ur Negative LEU/UL (Negative); Mucus Urine Heavy /lpf; Nitrate Urine Negative (Negative); Protein Urine 2+ mg/dL (Negative); Specific Grav Ur 1.026 (1.001-1.035); Squamous Epithelial Cell Urine Many /hpf (Few)
[2020-06-25] MEDS: ONDANSETRON INJ 4 MG/2 ML VIAL IV PUSH ×2 (03:15→09:11)
[2020-06-25] MEDS: SODIUM CHLORIDE 0.9% IV 1,000 ML 999 ML IV CONT ×2 (03:16→05:22)
--- NOTE | 2020-06-25 03:16 | ED.GENADULT ---
HPI - General Adult General Chief complaint: Nausea/Vomiting/Diarrhea Stated complaint: poss allergic reaction Time Seen by Provider: 06/25/20 02:08 History of Present Illness HPI narrative: Patient is a 34-year-old female who presents the emergency department with chief complaint of nausea and vomiting. The patient states that it began after she is taken a dose of naltrexone that she has been started on to help with her withdrawing from alcohol use. Patient states that she started feeling as though her heart is racing and has had multiple episodes of nausea and vomiting and retching. Patient states that she was drinking a significant amount and is currently taking Librium as well. Patient denies suicidal ideation denies being tremulous denies abdominal pain. Related Data Home Medications Medication Instructions Recorded Confirmed magnesium 500 mg PO DAILY 04/26/19 05/05/20 fluticasone propionate [Flonase 2 spray INTRANASAL HS 11/26/19 05/05/20 Allergy Relief] potassium 40 meq PO .COMPLEX 12/02/19 05/05/20 Allergies Allergy/AdvReac Type Severity Reaction Status Date / Time adhesive tape Allergy Unknown Unknown Verified 06/25/20 02:01 bee venom protein (honey bee) Allergy Unknown swelling Verified 06/25/20 02:01 sertraline [From Zoloft] Allergy Unknown Unknown Verified 06/25/20 02:01 venom-wasp Allergy Unknown swell up Verified 06/25/20 02:01 azithromycin Allergy Unknown Verified 06/25/20 02:01 Review of Systems Review of Systems: Narrative: A 10 system review of systems was completed on the patient and is negative except for what is stated in the HPI. Nursing and ancillary documentation was reviewed. [facility] Past Medical History Medical History (Updated 06/25/20 @ 07:15 by Walter Sykes MD) Alcoholism Alcoholism Alcoholism Anxiety Anxiety Chronic sinus infection Depression Depression GERD (gastroesophageal reflux disease) History of gastroesophageal reflux (GERD) Hypokalemia Hypokalemia Hypokalemia Panic attacks Panic attacks Panic attacks Panic attacks Surgical History Surgical History No history of previous surgery No significant past surgical history Family History Family History Mother Lung cancer Father , Patient said was murdered found out doing autopsy he had cancer Cancer Mother Family history of lung cancer Social History Social History Social History: Ms. 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 She reports previously drinking around 14 shots per day of Fireball whiskey and has now cut back to 2 to 4 shots daily. She is smoking 1 half pack per day of cigarettes since age 15 years old. She denies other substance use. Her PCP is Dr Stevenson. She is full code status. Smoking packs per day: 1 Smoking cigarettes per day: 20.0 Years smoked: 19 Smoking pack-years: 19.00 Smoking status: Current every day smoker Tobacco type: cigarettes Second hand tobacco smoke exposure: Yes Additional smoking assessment comments: Pt states that she smokes under 1 pack per day. Alcohol intake: current Drinks per week: 14 Substance use: never Substance use type: marijuana Gender identity (if verbalized by the patient): Female Spiritual care concerns: No Exam Narrative: Exam Narrative: GENERAL: Well-appearing, well-nourished, and in no acute distress. HEAD: Normocephalic, atraumatic. EYES: PERRLA and EOMI. ENT: Nares clear, no rhinorrhea or epistaxis. Mucous membranes moist. NECK: Supple. CHEST: Clear to auscultation. No respiratory distress. HEART: Regular rate and rhythm. No murmur heard. Normal peripheral pulses. ABDOMEN: Soft, nontender, nondistended, normal active bowel sounds. EXTREMITIES: Norm
[2020-06-25] MEDS: PROCHLORPERAZINE EDISYLATE 10 MG/2 ML VIAL IV PUSH (03:17)
[2020-06-25 04:29] LABS: Basophils Absolute Auto 0.1 K/mm3 (0.0-0.1); Basophils Percent Auto 0.4 % (0.2-1.2); Eosinophils Percent Auto 0.1 % (0-4.4); Hematocrit 36.8 % (37.0-47.0); Hemoglobin 13.2 g/dL (12.0-15.0); Immature Granulocyte Percent A 0.7 % (0-0.5); Lymphocytes Absolute Auto 0.92 K/mm3 (0.9-3.2); Lymphocytes Percent Auto 6.6 % (18.3-44.2); Mean Corpuscular HGB Conc 35.9 g/dl (32-36); Mean Corpuscular Hemoglobin 34.7 pg (26-34); Mean Corpuscular Volume 96.8 fl (80-100); Mean Platelet Volume 10.2 fl (7.4-10.4); Monocytes Absolute Auto 0.9 K/mm3 (0.1-0.6); Monocytes Percent Auto 6.4 % (2.6-8.5); Neutrophils Percent Auto 85.8 % (45.5-73.1); Platelet Count Result 247 k/mm3 (150-375); White Blood Count 13.9 K/mm3 (4.5-10.0)
[2020-06-25 04:51] LABS: Alanine Aminotransferase 39 U/L (4-35); Albumin Level 4.2 g/dL (3.5-5.1); Alkaline Phosphatase 109 U/L (38-126); Anion Gap 13 mmol/L (8-16); Aspartate Amino Transferase 113 U/L (14-36); Bilirubin,Total 0.6 mg/dL (0.2-1.3); Blood Urea Nitrogen 2 mg/dL (7-17); Calcium 8.4 mg/dL (8.4-10.2); Carbon Dioxide 28 mmol/L (22-30); Chloride 97 mmol/L (98-107); Estimated Glomerular Filt Rate > 60; Glucose 140 mg/dL (65-105); Lipase 1319 U/L (23-300); Potassium 2.8 mmol/L (3.4-5.0); Sodium 138 mmol/L (137-145)
[2020-06-25] MEDS: KCL 20 MEQ/SW 100 ML 100 ML 50 MEQ IVPB (05:30)
[2020-06-25] MEDS: LORazepam INJ (*CRX) 2 MG/ML VIAL 1 MG IV PUSH (05:30)
[2020-06-25] MEDS: SODIUM CHLORIDE 0.9% IV 1,000 ML 150 ML IV CONT (06:53)
--- NOTE | 2020-06-25 08:45 | ADMGEN ---
This patient, Valorie Garcia, was admitted to Medical Room 253-01. Patient/family oriented to hospital policies and general routines including ID bracelet, bed and alarms, visiting hours, pain management, procedures, bathroom and other care routines, personal items, smoking policy, room service/diet, and visiting hours. Information on how to activate the Rapid Response Team has been discussed. Patient/Family are encouraged to report perceived risks to care and to ask questions if they do not understand what they are told or what they should do.
[2020-06-25] MEDS: SODIUM CHLORIDE 0.9% IV 1,000 ML 125 ML IV CONT ×2 (09:11→17:31)
--- NOTE | 2020-06-25 10:07 | PM.IMHP ---
H&P: HPI History of Present Illness Date/Time: 06/25/20 10:07 Chief Complaint: Nausea and vomiting and diarrhea Narrative: Date of visit 06/25 930. Valorie Garcia is a 34 year old female with history of alcohol dependency who states that yesterday had drank probably 2 shots of fireball and took naltrexone and shortly thereafter started having abdominal cramping accompanied by nausea vomiting and diarrhea. She vomited several times until it was just dry heaves. No hematemesis melena or hematochezia. She has had no recent travel and has not eaten anything unusual or different. She has taken naltrexone in the past. With her symptoms persisting she presented to the emergency room with symptoms of palpitation and malaise. Potassium was 2.8 and lipase was elevated at [address] of abdomen showed no definite pancreatitis. She was hydrated and admitted for fluid resuscitation and correction of her electrolyte abnormalities. Significantly she had a similar admission in November of 2019 and corrected quickly within 24 hours. Review of Systems Review of Systems: Narrative: Constitutional weight had been steady appetite good prior to present illness with no fever chills Eye no double vision or scotoma Mouth no pharyngitis laryngitis Pulmonary no shortness breath wheezing or cough CV no chest pain but seen like her heart was racing after emesis GI as per present illness no dysuria no hematuria Muscle skeletal no particular joint discomfort Integument no skin breakdown rashes Neuropsych no seizures or syncope She relates that with her withdrawal from alcohol in the past she has had tremors but no seizures or DTs PMFSH Past Medical History Medical History (Updated 06/25/20 @ 10:21 by Serge Bates MD) Alcoholism Alcoholism Alcoholism Anxiety Anxiety Chronic sinus infection Depression Depression GERD (gastroesophageal reflux disease) History of gastroesophageal reflux (GERD) Hypokalemia Hypokalemia Hypokalemia Panic attacks Panic attacks Panic attacks Panic attacks Surgical History Surgical History No history of previous surgery No significant past surgical history Family History Family History (Updated 06/25/20 @ 10:13 by Serge Bates MD) Mother , Diet at age 52 Lung cancer Father , Patient said was murdered found out doing autopsy he had cancer Cancer Mother Family history of lung cancer Social History Social History (Updated 06/25/20 @ 10:15 by Serge Bates MD) Social History: Ms. 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 She reports previously drinking around 14 shots per day of Fireball whiskey and has now cut back to 2 to 4 shots daily. She is smoking 1 half pack per day of cigarettes since age 15 years old. She denies other substance use. Her PCP is Dr Stevenson. She is full code status. She is currently on medical leave Smoking packs per day: 0.5 Smoking cigarettes per day: 10.0 Years smoked: 19 Smoking pack-years: 9.50 Smoking status: Current every day smoker Tobacco type: cigarettes Second hand tobacco smoke exposure: Yes Additional smoking assessment comments: Pt states that she smokes under 1 pack per day. Alcohol intake: current Drinks per week: 28 Substance use: never Gender identity (if verbalized by the patient): Female Spiritual care concerns: No Meds Home Medications and Allergies Home Medications Medication Instructions Recorded Confirmed Type magnesium 500 mg PO DAILY 04/26/19 06/25/20 History potassium chloride 20 mEq/15 mL See Rx Instructions .ROUTE 11/04/19 06/25/20 Rx oral liquid .COMPLEX #375 ml fluticasone propionate [Flonase 2 spray INTRANASAL HS PRN 11/26/19 06/25/20 History Allergy Relief] loperamide 2 mg tablet 2 mg PO Q6H PRN #30 tablet 04/08/20 06/25/20 Rx pregabalin 75 mg capsule 75
[2020-06-25] MEDS: THIAMINE HCL 200 MG/2 ML VIAL 100 MG IV PUSH (12:00)
[2020-06-25 16:49] LABS: Anion Gap 8 mmol/L (8-16); Calcium 7.1 mg/dL (8.4-10.2); Carbon Dioxide 26 mmol/L (22-30); Chloride 105 mmol/L (98-107); Estimated CRCL calculation 139 ml/min; Estimated Glomerular Filt Rate > 60; Glucose 104 mg/dL (65-105); Magnesium 0.9 mg/dL (1.6-2.3); Phosphorus 2.4 mg/dL (2.5-4.5); Sodium 139 mmol/L (137-145)
[2020-06-25 17:04] LABS: Blood Urea Nitrogen < 2 mg/dL (7-17)
[2020-06-25] MEDS: metroNIDAZOLE 500 MG/ISO 100ML 500 MG/100 ML BAG 100 MG IVPB ×2 (17:31→23:42)
[2020-06-25 17:44] LABS: Hepatitis B Surface Antigen Negative (Negative)
[2020-06-25 17:50] LABS: HAV RESULT Negative (Negative); Hepatitis B Core IgM Result Negative (Negative)
[2020-06-25] MEDS: POTASSIUM CHLORIDE 20 MEQ PACKET (FOR LIQUID) 40 MEQ PO ×2 (17:54→20:20)
[2020-06-25 18:02] LABS: Hepatitis C Virus Antibody Negative (Negative)
[2020-06-25] MEDS: CALCIUM CARBONATE (TUMS) 500 MG (200 MG ELEMENTAL) PO (18:35)
[2020-06-25] MEDS: MAGNESIUM SULF 4 GM/WATER100ML 4 GM/100 ML BAG IVPB (18:37)
[2020-06-25] MEDS: POTASSIUM PHOS,M-BASIC-D-BASIC 20 MMOL in SODIUM CHLORIDE 0.9% IV 250 ML 64 MMOL IVPB (19:43)
[2020-06-25] MEDS: PANTOPRAZOLE SODIUM IV 40 MG VIAL IV PUSH (20:20)
[2020-06-25] MEDS: CIPROFLOXACIN 500 MG TAB PO (20:20)
[2020-06-26] VITALS: PULSE 95
[2020-06-26] MEDS: SODIUM CHLORIDE 0.9% IV 1,000 ML 125 ML IV CONT (03:42)
[2020-06-26 04:00] VITALS: PULSE 86
[2020-06-26 05:34] VITALS: BP 115/80; PULSE 93; RESP 16; TEMP 36.6; O2SAT 100
[2020-06-26 05:52] LABS: Basophils Percent Auto 0.5 % (0.2-1.2); Eosinophils Absolute Auto 0.2 K/mm3 (0-0.3); Eosinophils Percent Auto 2.5 % (0-4.4); Hematocrit 30.5 % (37.0-47.0); Hemoglobin 10.5 g/dL (12.0-15.0); Immature Granulocyte Absolute 0.02 K/mm3 (0.00-0.031); Immature Granulocyte Percent A 0.2 % (0-0.5); Lymphocytes Absolute Auto 2.53 K/mm3 (0.9-3.2); Lymphocytes Percent Auto 30.5 % (18.3-44.2); Mean Corpuscular HGB Conc 34.4 g/dl (32-36); Mean Corpuscular Hemoglobin 35.5 pg (26-34); Mean Platelet Volume 10.8 fl (7.4-10.4); Monocytes Absolute Auto 0.7 K/mm3 (0.1-0.6); Monocytes Percent Auto 8.3 % (2.6-8.5); Neutrophils Absolute Auto 4.8 K/mm3 (1.3-6.7); Platelet Count Result 202 k/mm3 (150-375); Red Blood Count 2.96 M/mm3 (4.2-5.4); White Blood Count 8.3 K/mm3 (4.5-10.0)
[2020-06-26 06:06] LABS: Alanine Aminotransferase 22 U/L (4-35); Albumin Level 2.9 g/dL (3.5-5.1); Alkaline Phosphatase 63 U/L (38-126); Anion Gap 7 mmol/L (8-16); Aspartate Amino Transferase 46 U/L (14-36); Bilirubin,Total 0.4 mg/dL (0.2-1.3); Calcium 7.1 mg/dL (8.4-10.2); Carbon Dioxide 24 mmol/L (22-30); Chloride 107 mmol/L (98-107); Estimated CRCL calculation 177 ml/min; Estimated Glomerular Filt Rate > 60; Glucose 111 mg/dL (65-105); Lipase 299 U/L (23-300); Magnesium 1.7 mg/dL (1.6-2.3); Phosphorus 3.7 mg/dL (2.5-4.5); Potassium 2.9 mmol/L (3.4-5.0); Sodium 138 mmol/L (137-145)
[2020-06-26 06:09] LABS: Blood Urea Nitrogen < 2 mg/dL (7-17)
[2020-06-26] MEDS: metroNIDAZOLE 500 MG/ISO 100ML 500 MG/100 ML BAG 100 MG IVPB (06:12)
[2020-06-26] MEDS: POTASSIUM CHLORIDE 20 MEQ PACKET (FOR LIQUID) 40 MEQ PO (07:48)
[2020-06-26 08:00] VITALS: PULSE 85
[2020-06-26] MEDS: THIAMINE HCL 200 MG/2 ML VIAL 100 MG IV PUSH (08:10)
[2020-06-26] MEDS: PANTOPRAZOLE SODIUM IV 40 MG VIAL IV PUSH (08:11)
[2020-06-26] MEDS: CIPROFLOXACIN 500 MG TAB PO (08:13)
[2020-06-26] MEDS: FLUTICASONE PROPIONATE 0.05% NA SPR 16 GM BTL (*BKC) 2 SPRAY NASAL (08:13)
[2020-06-26 12:00] VITALS: PULSE 73
[2020-06-26 12:32] LABS: Anion Gap 2 mmol/L (8-16); Calcium 7.5 mg/dL (8.4-10.2); Carbon Dioxide 28 mmol/L (22-30); Chloride 108 mmol/L (98-107); Estimated CRCL calculation 139 ml/min; Estimated Glomerular Filt Rate > 60; Glucose 109 mg/dL (65-105); Potassium 3.9 mmol/L (3.4-5.0); Sodium 138 mmol/L (137-145)
[2020-06-26 13:20] LABS: Blood Urea Nitrogen < 2 mg/dL (7-17)
--- NOTE | 2020-06-26 15:58 | PM.DS ---
DS: Admitting Diagnosis Admitting Diagnosis Admitting Diagnosis: Nausea vomiting and dehydration with colitis DS: Discharge Diagnosis Discharge Diagnosis (1) Nausea & vomiting: Qualifiers: Vomiting Intractability: non-intractable Vomiting type: unspecified Qualified Code(s): R11.2 - Nausea with vomiting, unspecified Code(s): R11.2 - Nausea with vomiting, unspecified Status: Acute Assessment and Plan: Probable simple gastroenteritis. CT did report colitis as it had on her previous visit. Significantly she did have a colonoscope exam in November which was normal with no evidence of inflammatory bowel disease. Lipase is elevated but was even higher when she was here last November and no CT evidence of pancreatitis. Hydrated aggressively and replace electrolytes and symptoms subsided. Lipase normal at 299 morning of discharge. She was taking a regular diet without any adverse effects by the time of discharge Again probable mild gastroenteritis colitis. Was treated with Flagyl and Cipro on discharge for 1 more week (2) Hypokalemia: Code(s): E87.6 - Hypokalemia Status: Acute Assessment and Plan: After replacing potassium before discharge her potassium is 3.9. Magnesium was 1.7 after replacement and phosphorus normal also. (3) Alcoholism: Code(s): F10.20 - Alcohol dependence, uncomplicated Status: Chronic Assessment and Plan: Administer thiamin and p.r.n. Librium. No evidence of any withdrawal signs while here. Warned about possible Antabuse type affect with the metronidazole if mix with alcohol (4) Dehydration: Code(s): E86.0 - Dehydration Status: Acute Assessment and Plan: After hydration symptoms subsided felt much better (5) Panic attacks: Code(s): F41.0 - Panic disorder [episodic paroxysmal anxiety] Status: Acute Assessment and Plan: P.r.n. librium (6) Elevated LFTs: Code(s): R79.89 - Other specified abnormal findings of blood chemistry Status: Acute Assessment and Plan: Previous CT scans have revealed steatosis. Also could be related to EtOH consumption. Repeat LFTs had all returned to normal except SGPT which was still 46. Hepatitis profile a B and C with negative again DS: Summary Hospital Course Hospital Course: Date of discharge and date of visit 06/26/2020 34-year-old female with known history of alcohol dependency states that shortly after taking a higher dose of nalexone she had severe nausea vomiting and diarrhea. She presented to the ER with volume depletion, leukocytosis, and abdominal discomfort. CT scan revealed rather diffuse colitis. She was hydrated aggressively and placed on metronidazole and ciprofloxacin. In less than 24 hours white count had returned to normal. She had a similar presentation with an episode in November of 2019 which was followed up by colonoscope exam which was normal. She will follow-up with Dr. Stevenson she was discharged home with 1 more week of metronidazole 500 t.i.d. and ciprofloxacin 500 b.i.d. Time Spent with Patient Time attestation: Total time spent providing and/or coordinating discharge services: 35 minutes Exam Narrative: Exam Narrative: Condition on discharge Blood pressure 116/80 pulse is 72 saturating 100% on room air afebrile Lungs clear CV regular rate rhythm no murmurs Abdomen soft nontender bowel sounds present Extremities without edema Alert oriented and taken regular diet well without any nausea vomiting or diarrhea. She was up and about and stable to be discharged home DS: Data Data Completed and Pending Labs on day of discharge: Labs from last 24 hours 06/26/20 06/26/20 06/26/20 12:10 05:18 05:18 WBC 8.3 RBC 2.96 L Hgb 10.5 L Hct 30.5 L MCV 103.0 H D MCH 35.5 H MCHC 34.4 RDW TNP Plt Count 202 MPV 10.8 H Immature Gran % (Auto) 0.2 Neut % (Auto) 58.0 Lymph % (Auto) 30.5 Gulf % (Auto) 8.3
== END 2020-06-26 13:10 | disposition home or self-care (01) ==
LOC: ANHED 07:15 → ANH2MED 07:54
PROVIDERS: Admitting Provider Internal Medicine; Emergency Provider Emergency Medicine; PCP Emergency Medicine; Visit Provider Internal Medicine
DX: K52.9 Noninfective gastroenteritis and colitis, unspecified (principal); R11.2 Nausea with vomiting, unspecified; E86.0 Dehydration; E87.6 Hypokalemia; K80.20 Calculus of gallbladder without cholecystitis without obstruction; F10.20 Alcohol dependence, uncomplicated; F41.0 Panic disorder [episodic paroxysmal anxiety]; R79.89 Other specified abnormal findings of blood chemistry; F17.210 Nicotine dependence, cigarettes, uncomplicated; K76.0 Fatty (change of) liver, not elsewhere classified
CPT/HCPCS: 36415; 74177; 80048; 80053; 80074; 80076; 81001; 81025; 82607; 83690; 83735; 84100; 85025; 87086; 96361; 96365; 96366; 96367; 96375; 96376; 99285; A9270; C9113; G0378; G0379; J0780; J2060; J2405; J3411; J3475; J3480; J7030; J7050; Q9967

== ENCOUNTER 2020-11-04 18:12 | Emergency (ER) | payer OTHER, SELFPAY ==
--- NOTE | 2020-11-04 18:16 | ED.LOWEXIN ---
HPI - Extremity Injury (Lower) General Chief Complaint: Extremity Injury, Lower Stated Complaint: left foot pain Time Seen by Provider: 11/04/20 18:25 Source: patient and RN notes reviewed Mode of arrival: ambulatory Limitations: no limitations History of Present Illness HPI Narrative: 35-year-old female presents with concern for a left foot pain that started 4 days ago without injury. She woke up with pain to the arch and heel of her foot. Reports mild improvement with walking. Denies any intervention such as pain medicine, ice, elevation, rest. Denies playing sports, working on her feet. Denies redness, swelling, open skin, warmth. MD complaint: foot injury Related Data Home Medications Medication Instructions Recorded Confirmed cetirizine [Zyrtec] 10 mg PO BID 11/04/20 11/04/20 chlordiazepoxide HCl [Librium] 10 mg PO BID 11/04/20 11/04/20 fluticasone propionate [Flonase] 1 spray INTRANASAL HS 11/04/20 11/04/20 loperamide 2 mg PO Q6H 11/04/20 11/04/20 potassium chloride 2 meq PO BID 11/04/20 11/04/20 pregabalin [Lyrica] 75 mg PO BID 11/04/20 11/04/20 Allergies Allergy/AdvReac Type Severity Reaction Status Date / Time adhesive tape Allergy Unknown Unknown Verified 06/25/20 08:53 bee venom protein (honey bee) Allergy Unknown swelling Verified 06/25/20 08:53 sertraline [From Zoloft] Allergy Unknown Unknown Verified 06/25/20 08:53 venom-wasp Allergy Unknown swell up Verified 06/25/20 08:53 azithromycin Allergy Unknown Verified 11/04/20 18:29 Review of Systems Review of Systems: Narrative: CONSTITUTIONAL: Denies malaise, chills, sweats, or fever. SKIN: Denies lacerations or abrasions MUSCULOSKELETAL: Reports pain in the arch and heel of the left foot. Denies decreased range, sensation, range of motion NEUROLOGIC: Denies numbness, weakness All systems reviewed & are unremarkable except as noted in HPI and below PMFSH Past Medical History Medical History (Updated 11/04/20 @ 18:39 by Anne Marie Lamar NP) Alcoholism Alcoholism Alcoholism Anxiety Anxiety Chronic sinus infection Depression Depression GERD (gastroesophageal reflux disease) History of gastroesophageal reflux (GERD) Hypokalemia Hypokalemia Hypokalemia Panic attacks Panic attacks Panic attacks Panic attacks Surgical History Surgical History No history of previous surgery No significant past surgical history Family History Family History Mother , Diet at age 52 Lung cancer Father , Patient said was murdered found out doing autopsy he had cancer Cancer Mother Family history of lung cancer Social History Social History Social History: Ms. 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 She reports previously drinking around 14 shots per day of Fireball whiskey and has now cut back to 2 to 4 shots daily. She is smoking 1 half pack per day of cigarettes since age 15 years old. She denies other substance use. Her PCP is Dr Stevenson. She is full code status. She is currently on medical leave Smoking packs per day: 0.5 Smoking cigarettes per day: 10.0 Years smoked: 19 Smoking pack-years: 9.50 Smoking status: Current every day smoker Tobacco type: cigarettes Second hand tobacco smoke exposure: Yes Additional smoking assessment comments: Pt states that she smokes under 1 pack per day. Alcohol intake: current Drinks per week: 28 Substance use: never Gender identity (if verbalized by the patient): Female Spiritual care concerns: No Comments At time of signature, agree with nursing past medical, surgical, social and family history. There is no relevant family history pertinent to the presenting complaint Exam Narrative: Exam Narrative: GENERAL: Well-appearing, well-nourished, and in no
[2020-11-04 18:21] VITALS: BP 118/86; PULSE 104; RESP 16; TEMP 36.7; O2SAT 99
== END 2020-11-04 18:43 | disposition home or self-care (01) ==
PROVIDERS: Emergency Provider Nurse Practitioner; PCP Emergency Medicine
DX: M79.672 Pain in left foot (principal); F17.210 Nicotine dependence, cigarettes, uncomplicated; F41.9 Anxiety disorder, unspecified; K21.9 Gastro-esophageal reflux disease without esophagitis
CPT/HCPCS: 99213; G0463

== ENCOUNTER 2020-11-20 21:18 | Inpatient (IN) | payer OTHER, SELFPAY ==
--- NOTE | ~2020-11-20 | US_ITS ---
EXAMINATION: US abdomen limited DATE: 11/24/2020 08:04 INDICATION: Liver mass. TECHNIQUE: Multiple grayscale and Doppler ultrasound images of the abdomen were obtained. COMPARISON: CT abdomen and pelvis 11/21/2020 FINDINGS: The visualized portions of the head and body of the pancreas are normal. The liver demonstr ates steatosis and surface nodularity, consistent with cirrhosis. There is normal flow in main portal vein. The gallbladder is contracted and contains gallstones. Gallbladder wall thickening is noted. T here was no sonographic Smith sign. The common duct is normal and measures 3 mm. IMPRESSION: 1. Cirrhosis of the liver. No discrete mass identified. 2. Cholelithiasis. Gallbladder wall thickening may be secondary to chronic liver disease. Reviewed, dictated and finalized at location A. IMPRESSION: 1. Cirrhosis of the liver. No discrete mass identified. 2. Cholelithiasis. Gallbladder wall thickening may be secondary to chronic live r disease.
--- NOTE | ~2020-11-20 | CT_ITS ---
EXAMINATION: CT abdomen pelvis w con DATE: 11/21/2020 12:41 INDICATION: Acute pancreatitis. TECHNIQUE: Computed tomography (CT) of the abdomen and pelvis was performed with 100 mL Omnipaque 350 intravenous contrast. Automated exposure control and iterative reconstruction technique were employe d. The dose-length product was 438.23 mGy-cm. COMPARISON: CT abdomen and pelvis 06/25/2020 FINDINGS: The visualized portions of the lung bases demonstrate a calcified nodule in right lower lob e, consistent with old granulomatous disease. No pleural effusion. The heart size is normal. No peric ardial effusion. There is diffuse hepatic steatosis. The liver demonstrates surface nodularity, consi stent with cirrhosis. There is a 4.1 cm mass in segment IVb of the liver abutting the gallbladder. Th ere are gallstones in the gallbladder, which is normal in size. There is fat stranding around the mcmillan creas, consistent with acute interstitial pancreatitis. There is mild periportal lymphadenopathy. The spleen is normal in size. Iterative glands and kidneys are normal. There are no dilated loops of bow el. The appendix is normal. There is no free intraperitoneal fluid. There is mild thoracal lumbar spo ndylosis. IMPRESSION: 1. Cirrhosis of the liver. 2. Worsened 4.1 cm mass in segment IVb of the liver abutting the gallbladder. The differential diagno sis includes heterogeneity of cirrhosis and focal hepatitis. Malignancy is less likely given the magda ent's age. 3. Acute interstitial pancreatitis. 4. Cholelithiasis. 5. Mild periportal lymphadenopathy, likely reactive. Reviewed, dictated and finalized at location A. IMPRESSION: 1. Cirrhosis of the liver. 2. Worsened 4.1 cm mass in segment IVb of the liver abutting the gallbladder. T he differential diagnosis includes heterogeneity of cirrhosis and focal hepatit is. Malignancy is less likely given the patient's age. 3. Acute interstitial pancreatitis. 4. Cholelithiasis. 5. Mild periportal lymphadenopathy, likely reactive.
[2020-11-20 21:21] VITALS: BP 134/88; PULSE 102; RESP 18; TEMP 36.2; O2SAT 100
[2020-11-20 21:32] LABS: Basophils Absolute Auto 0.1 K/mm3 (0.0-0.1); Basophils Percent Auto 0.6 % (0.2-1.2); Eosinophils Percent Auto 0.5 % (0-4.4); Hematocrit 42.9 % (37.0-47.0); Hemoglobin 14.8 g/dL (12.0-15.0); Immature Granulocyte Absolute 0.03 K/mm3 (0.00-0.031); Immature Granulocyte Percent A 0.3 % (0-0.5); Lymphocytes Absolute Auto 1.33 K/mm3 (0.9-3.2); Lymphocytes Percent Auto 15.4 % (18.3-44.2); Mean Corpuscular HGB Conc 34.5 g/dl (32-36); Mean Corpuscular Hemoglobin 33.8 pg (26-34); Mean Corpuscular Volume 97.9 fl (80-100); Mean Platelet Volume 10.3 fl (7.4-10.4); Monocytes Absolute Auto 0.8 K/mm3 (0.1-0.6); Monocytes Percent Auto 9.3 % (2.6-8.5); Neutrophils Absolute Auto 6.4 K/mm3 (1.3-6.7); Neutrophils Percent Auto 73.9 % (45.5-73.1); Platelet Count Result 254 k/mm3 (150-375); Red Blood Count 4.38 M/mm3 (4.2-5.4); Red Cell Distribution Width 19.4 % (11.5-14.5); White Blood Count 8.6 K/mm3 (4.5-10.0)
[2020-11-20 21:53] LABS: Alanine Aminotransferase 68 U/L (4-35); Albumin Level 4.3 g/dL (3.5-5.1); Alkaline Phosphatase 157 U/L (38-126); Anion Gap 17 mmol/L (8-16); Aspartate Amino Transferase 209 U/L (14-36); Bilirubin,Total 1.1 mg/dL (0.2-1.3); Calcium 8.2 mg/dL (8.4-10.2); Carbon Dioxide 26 mmol/L (22-30); Chloride 94 mmol/L (98-107); Estimated CRCL calculation 156 ml/min; Estimated Glomerular Filt Rate > 60; Glucose 147 mg/dL (65-105); Lipase 769 U/L (23-300); Potassium 2.7 mmol/L (3.4-5.0); Sodium 137 mmol/L (137-145)
[2020-11-20 21:55] LABS: Blood Urea Nitrogen < 2 mg/dL (7-17)
[2020-11-20 22:56] VITALS: BP 124/95; PULSE 102; RESP 15; O2SAT 100
[2020-11-20] MEDS: SODIUM CHLORIDE 0.9% IV 1,000 ML 999 ML IV CONT (23:00)
[2020-11-20] MEDS: ONDANSETRON INJ 4 MG/2 ML VIAL IV PUSH (23:00)
[2020-11-20] MEDS: POTASSIUM CHLORIDE 20 MEQ PACKET (FOR LIQUID) 40 MEQ PO (23:01)
[2020-11-20 23:39] LABS: Magnesium 0.9 mg/dL (1.6-2.3)
[2020-11-20 23:56] LABS: Add Urine Microscopic? YES; Appearance Urine Cloudy (Clear); Bacteria Urine Trace /hpf; Bilirubin Urine Negative (Negative); Blood Urine Negative (Negative); Color Urine Amber (Yellow); Glucose Urine UA Negative (Negative); Hyaline Casts Urine 30-49 /lpf; Ketones Urine Negative (Negative); Leukocyte Esterase Ur Trace LEU/UL (Negative); Mucus Urine Few /lpf; Nitrate Urine Negative (Negative); Protein Urine 2+ mg/dL (Negative); RBC Urine 0-2 /hpf (0-2); Specific Grav Ur 1.019 (1.001-1.035); Squamous Epithelial Cell Urine Many /hpf (Few)
[2020-11-21] VITALS (12 sets, daily range): BP systolic 95–126; BP diastolic 55–98; PULSE 66–103; RESP 15–19; TEMP 35.9–36.1; O2SAT 95–100; BMI 27.6
[2020-11-21] MEDS: MAGNESIUM SULF 1 GM/D5W 100 ML 1 GM/100 ML BAG IVPB (00:08)
--- NOTE | 2020-11-21 00:12 | ED.NAVMDI ---
HPI - Nausea/Vomiting/Diarrhea General Chief complaint: Nausea/Vomiting/Diarrhea Stated complaint: N/V/D Time Seen by Provider: 11/20/20 21:58 History of Present Illness HPI Narrative: Patient is a 35-year-old female who with history of alcoholism as well as hypokalemia and hypomagnesemia. Patient presents ER with nausea and vomiting over the last day. Its associated with chronic diarrhea. She reports she has not been taking her potassium supplements over the last week. She also reports that she has been drinking alcohol every evening. Denies any abdominal pain. No fevers or chills or sweats. No additional concerns. Patient has not been having muscle cramps/spasm. No exertional fatigue. Related Data Home Medications Medication Instructions Recorded Confirmed cetirizine [Zyrtec] 20 mg PO HS 11/04/20 11/21/20 chlordiazepoxide HCl [Librium] 10 mg PO BID PRN 11/04/20 11/21/20 fluticasone propionate [Flonase] 1 spray INTRANASAL DAILY 11/04/20 11/21/20 loperamide 4 mg PO TID 11/04/20 11/21/20 pregabalin [Lyrica] 75 mg PO BID 11/04/20 11/21/20 ondansetron HCl 4 mg PO Q6H PRN 11/21/20 11/21/20 potassium chloride 20 meq PO DAILY 11/21/20 11/21/20 Allergies Allergy/AdvReac Type Severity Reaction Status Date / Time adhesive tape Allergy Unknown Unknown Verified 11/20/20 23:03 bee venom protein (honey bee) Allergy Unknown swelling Verified 11/20/20 23:03 sertraline [From Zoloft] Allergy Unknown Unknown Verified 11/20/20 23:03 venom-wasp Allergy Unknown swell up Verified 11/20/20 23:03 azithromycin Allergy Unknown Verified 11/20/20 23:03 Review of Systems Review of Systems: All systems reviewed & are unremarkable except as noted in HPI and below Constitutional: Constitutional: Denies chills, Denies fever(s) and Denies weakness ENT: Denies nasal congestion and Denies sore throat Cardiovascular: Cardiovascular: Denies chest pain and Denies radiating jaw, neck or arm pain Respiratory: Respiratory: Denies cough and Denies dyspnea Gastrointestinal: Gastrointestinal: Denies abdominal pain, Reports diarrhea, Reports nausea and Reports vomiting Genitourinary: Genitourinary: Denies nocturia and Denies dysuria PMFSH Past Medical History Medical History (Updated 11/21/20 @ 00:21 by Brandan Lang MD) Alcoholism Anxiety Chronic sinus infection Depression GERD (gastroesophageal reflux disease) Hypokalemia Panic attacks Surgical History Surgical History (Updated 11/21/20 @ 00:15 by Brandan Lang MD) No significant past surgical history Family History Family History Mother , Diet at age 52 Lung cancer Father , Patient said was murdered found out doing autopsy he had cancer Cancer Mother Family history of lung cancer Social History Social History Social History: Ms. 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 She reports previously drinking around 14 shots per day of Fireball whiskey and has now cut back to 2 to 4 shots daily. She is smoking 1 half pack per day of cigarettes since age 15 years old. She denies other substance use. Her PCP is Dr Stevenson. She is full code status. She is currently on medical leave Smoking packs per day: 0.5 Smoking cigarettes per day: 10.0 Years smoked: 19 Smoking pack-years: 9.50 Smoking status: Current every day smoker Tobacco type: cigarettes Second hand tobacco smoke exposure: Yes Additional smoking assessment comments: Pt states that she smokes under 1/2 pack per day. Alcohol intake: current Drinks per week: 20 Substance use: current Substance use type: marijuana Other substance usage details: occasional Gender identity (if verbalized by the patient): Female Spiritual care concerns: No Exam Narrative: Exam Narrative: GENERAL: Well-appearing, well-nourish
[2020-11-21] MEDS: ONDANSETRON INJ 4 MG/2 ML VIAL IV PUSH ×2 (00:41→12:57)
[2020-11-21] MEDS: BELLADONNA ALK/PHENOB ELIX 10 ML, MAG HYDROX/ALUMINUM HYD/SIMETH 30 ML, LIDOCAINE HCL 2... PO (00:44)
--- NOTE | 2020-11-21 03:11 | PC.NURSE ---
This patient, Valorie Garcia, was admitted to [facility] Surg Room 321-01. Patient/family oriented to hospital policies and general routines including ID bracelet, bed and alarms, visiting hours, pain management, procedures, bathroom and other care routines, personal items, smoking policy, room service/diet, and visiting hours. Information on how to activate the Rapid Response Team has been discussed. Patient/Family are encouraged to report perceived risks to care and to ask questions if they do not understand what they are told or what they should do.
[2020-11-21] MEDS: SODIUM CHLORIDE 0.9% IV 1,000 ML 125 ML IV CONT (04:06)
[2020-11-21] MEDS: chlordiazePOXIDE (*CRX) 25 MG CAPSULE PO ×3 (04:21→22:25)
[2020-11-21] MEDS: THIAMINE HCL 200 MG/2 ML VIAL 100 MG IV PUSH ×2 (05:43→16:06)
--- NOTE | 2020-11-21 06:37 | PM.IMHP ---
H&P: HPI History of Present Illness Date/Time: 11/21/20 06:37 Chief Complaint: Vomiting for 1 day Narrative: 35-year-old female with past medical history of chronic alcohol abuse, chronic diarrhea and chronic hypokalemia who presented to the ER after having numerous episodes of vomiting over the last 24 hours. She reports that she started vomiting the minute she woke up. She denies having any abdominal pain. She was unable to take her loperamide because of her vomiting. She subsequently had about 7 watery stools yesterday. She has only been taking her potassium supplements intermittently and has not been taking them recently. She has not been having any associated abdominal pain. She denies any coffee-ground emesis or hematemesis. She has not had any further vomiting since presenting to the ER. Her last alcoholic beverage was on the evening of the . She reported that she drinks 3 shots of fireball before going to bed. She has managed to cut down on her alcohol use and is only drinking 3-4 shots every few days. She is currently staying with her cousin but is going to be homeless at the end of the month. She has an emotional support dog that is a [employer]riniacaesar. She is eager to go home so that she can be with her dog. She has not been having any fevers or chills. She reports that she feels significantly better today. Review of Systems Review of Systems: Narrative: 12 systems were reviewed with pertinent positives and negatives per HPI. Except as documented in the HPI, all other systems were reviewed and are negative. [facility] Past Medical History Medical History (Updated 11/21/20 @ 06:47 by Barbara Zambrano DO) Alcoholism Anxiety Chronic sinus infection Depression GERD (gastroesophageal reflux disease) Hepatic steatosis Hypokalemia Macrocytic anemia Due to alcohol abuse Panic attacks Surgical History Surgical History (Updated 11/21/20 @ 00:15 by Brandan Lang MD) No significant past surgical history Family History Family History (Updated 11/21/20 @ 06:45 by Barbara Zambrano DO) Mother , Diet at age 52 Lung cancer Father , Patient said was murdered found out doing autopsy he had cancer Cancer Mother No problems noted. Social History Social History (Updated 11/21/20 @ 06:46 by Barbara Zambrano DO) Social History: Ms. 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 She reports previously drinking around 14 shots per day of Fireball whiskey and has now cut back to 2 to 4 shots daily. She is smoking 1 half pack per day of cigarettes since age 15 years old. She denies other substance use. She is currently on medical leave Primary care physician: Dr. Marcus Stevenson Code status: Full code Smoking packs per day: 0.5 Smoking cigarettes per day: 10.0 Years smoked: 19 Smoking pack-years: 9.50 Smoking status: Current every day smoker Tobacco type: cigarettes Second hand tobacco smoke exposure: Yes Additional smoking assessment comments: Pt states that she smokes under 1/2 pack per day. Alcohol intake: current Drinks per week: 20 Substance use: current Substance use type: marijuana Other substance usage details: occasional Gender identity (if verbalized by the patient): Female Spiritual care concerns: No Meds Home Medications and Allergies Home Medications Medication Instructions Recorded Confirmed Type cetirizine [Zyrtec] 20 mg PO HS 11/04/20 11/21/20 History chlordiazepoxide HCl [Librium] 10 mg PO BID PRN 11/04/20 11/21/20 History fluticasone propionate [Flonase] 1 spray INTRANASAL DAILY 11/04/20 11/21/20 History loperamide 4 mg PO TID 11/04/20 11/21/20 History pregabalin [Lyrica] 75 mg PO BID 11/04/20 11/21/20 History ondansetron HCl 4 mg PO Q6H PRN 11/21/20 11/21/20 History potassium chloride 20 meq PO DAILY 11/21/20 11/21/20 History Allergies Allergy/AdvReac Type Severity Reaction
[2020-11-21 07:59] LABS: Hematocrit 35.7 % (37.0-47.0); Hemoglobin 12.2 g/dL (12.0-15.0); Mean Corpuscular HGB Conc 34.2 g/dl (32-36); Mean Corpuscular Hemoglobin 33.6 pg (26-34); Mean Corpuscular Volume 98.3 fl (80-100); Mean Platelet Volume 11.1 fl (7.4-10.4); Platelet Count Result 166 k/mm3 (150-375); Red Blood Count 3.63 M/mm3 (4.2-5.4); Red Cell Distribution Width 19.6 % (11.5-14.5); White Blood Count 7.5 K/mm3 (4.5-10.0)
[2020-11-21 08:16] LABS: Alanine Aminotransferase 48 U/L (4-35); Albumin Level 3.2 g/dL (3.5-5.1); Alkaline Phosphatase 105 U/L (38-126); Anion Gap 6 mmol/L (8-16); Aspartate Amino Transferase 144 U/L (14-36); Bilirubin,Total 0.9 mg/dL (0.2-1.3); Calcium 7.3 mg/dL (8.4-10.2); Carbon Dioxide 31 mmol/L (22-30); Chloride 102 mmol/L (98-107); Estimated CRCL calculation 156 ml/min; Estimated Glomerular Filt Rate > 60; Glucose 105 mg/dL (65-105); Lipase 659 U/L (23-300); Magnesium 1.5 mg/dL (1.6-2.3); Phosphorus 2.8 mg/dL (2.5-4.5); Potassium 3.1 mmol/L (3.4-5.0); Sodium 139 mmol/L (137-145)
[2020-11-21 08:46] LABS: Blood Urea Nitrogen < 2 mg/dL (7-17)
--- NOTE | 2020-11-21 09:09 | PM.IMPN ---
Progress Note: A&P Assessment and Plan (1) Hypokalemia: Code(s): E87.6 - Hypokalemia Status: Acute Assessment and Plan: Replace potassium Monitor CMP (2) Hypomagnesemia: Code(s): E83.42 - Hypomagnesemia Status: Acute Assessment and Plan: Replace magnesium monitor magnesium level daily (3) Alcoholic hepatitis: Qualifiers: Ascites presence: unspecified Qualified Code(s): K70.10 - Alcoholic hepatitis without ascites Code(s): K70.10 - Alcoholic hepatitis without ascites Status: Acute Assessment and Plan: Conservative management for now check hepatitis panel No plan for steroid Will get CT scan of the abdomen\ Avoid alcohol CIWA protocol was started (4) Dehydration: Code(s): E86.0 - Dehydration Status: Acute Assessment and Plan: Give IV fluid (5) Gastroenteritis: Code(s): K52.9 - Noninfective gastroenteritis and colitis, unspecified Status: Acute Assessment and Plan: Probably viral monitor for now (6) Elevated lipase: Code(s): R74.8 - Abnormal levels of other serum enzymes Status: Acute Assessment and Plan: Probable acute pancreatitis IV hydration clear liquid diet pending CT scan avoid alcohol Subjective Date/time seen: 11/21/20 09:09 Interval history: Patient seen and examined Patient was admitted to the hospital with nausea vomiting and diarrhea abdominal pain Was found to have probably gastroenteritis Also lipase is elevated probably patient has acute pancreatitis treated with IV fluid Patient was found to have multiple electrolyte imbalance probably related to dairy and chronic alcoholism Patient feels weak Patient denies fever headache chest pain shortness of breath I am seeing the patient for hypokalemia Exam Narrative: Exam Narrative: Alert Chest no wheeze crackles Abdomen mild tenderness CVS S1 + S2 Lower extremity christi Objective Data Vital Signs Vital Signs: Vital Signs - 24 hr 11/20/20 21:21 11/20/20 22:56 11/21/20 00:54 Temperature 97.1 F L Pulse Rate 102 H 102 H 103 H Respiratory Rate 18 15 19 Blood Pressure 134/88 124/95 H 126/98 H Pulse Oximetry 100 100 99 11/21/20 02:36 11/21/20 02:55 11/21/20 04:00 Temperature 97 F L Pulse Rate 80 66 76 Respiratory Rate 15 16 Blood Pressure 109/91 H 119/88 Pulse Oximetry 98 99 11/21/20 06:00 11/21/20 08:34 Temperature 97 F L Pulse Rate 76 Respiratory Rate 16 Blood Pressure 103/78 Pulse Oximetry 97 97 Intake/Output Intake/Output: Intake & Output 11/18/20 11/19/20 11/20/20 11/21/20 23:59 23:59 23:59 23:59 Intake Total 1100 Output Total 100 Balance 1000 Meds/Results Medications: Active Medications Generic Name Dose Route Start Last Admin Trade Name Freq PRN Reason Stop Dose Admin Acetaminophen 650 mg 11/21/20 01:32 Acetaminophen 325 Mg Tablet PO Q4H PRN Mild Pain (1-3) or Fever Chlordiazepoxide HCl 25 mg 11/21/20 01:36 11/21/20 04:21 Chlordiazepoxide (*Crx) 25 Mg Capsule PO 25 mg Q6H PRN Administration CIWA score greater than 6 Fluticasone Propionate 1 spray 11/21/20 09:00 Fluticasone Propionate 0.05% Na Spr 16 Gm Btl (*Bkc) NASAL DAILY [facility] Sodium Chloride 1,000 mls @ 150 mls/hr 11/21/20 01:35 Normal Saline Iv IV CONT .Q6H40M [facility] Loperamide HCl 4 mg 11/21/20 09:00 Loperamide Hcl 2 Mg Capsule PO TID MARI Loratadine 10 mg 11/21/20 21:00 Loratadine 10 Mg Tablet PO 12/21/20 21:01 [facility] Morphine Sulfate 4 mg 11/21/20 01:32 Morphine Sulfate (*Crx) 4 Mg/Ml Inj IV PUSH Q2H PRN Pain Rated 7-10 Ondansetron HCl 4 mg 11/21/20 01:34 Ondansetron Inj 4 Mg/2 Ml Vial IV PUSH Q4H PRN Nausea Potassium Chloride 20 meq 11/21/20 09:00 Potassium Chloride 20 Meq Packet (For Liquid) PO DAILY [facility] Pregabalin 75 mg 11/21/20 09:00 Pregabalin (*Crx) 75 Mg Capsule
[2020-11-21] MEDS: LOPERAMIDE HCL 2 MG CAPSULE 4 MG PO ×3 (09:43→18:28)
[2020-11-21] MEDS: POTASSIUM CHLORIDE 20 MEQ PACKET (FOR LIQUID) PO (09:43)
[2020-11-21] MEDS: PREGABALIN (*CRX) 75 MG CAPSULE PO ×2 (09:43→20:43)
[2020-11-21] MEDS: MAGNESIUM SULF 2 GM/WATER 50ML 2 GM/50 ML BAG IVPB (09:44)
[2020-11-21] MEDS: POTASSIUM CHLORIDE 20 MEQ TABLET 40 MEQ PO (09:44)
[2020-11-21] MEDS: FLUTICASONE PROPIONATE 0.05% NA SPR 16 GM BTL (*BKC) 1 SPRAY NASAL (09:44)
[2020-11-21] MEDS: SODIUM CHLORIDE 0.9% IV 1,000 ML 150 ML IV CONT (18:30)
[2020-11-21] MEDS: LORATADINE 10 MG TABLET PO (20:43)
[2020-11-22] VITALS (10 sets, daily range): BP systolic 81–116; BP diastolic 62–91; PULSE 70–92; RESP 16–18; TEMP 36.2–36.7; O2SAT 95–100
[2020-11-22] MEDS: SODIUM CHLORIDE 0.9% IV 1,000 ML 150 ML IV CONT (03:22)
[2020-11-22 08:29] LABS: Basophils Absolute Auto 0.1 K/mm3 (0.0-0.1); Basophils Percent Auto 0.6 % (0.2-1.2); Eosinophils Absolute Auto 0.2 K/mm3 (0-0.3); Eosinophils Percent Auto 2.3 % (0-4.4); Hematocrit 37.1 % (37.0-47.0); Hemoglobin 12.2 g/dL (12.0-15.0); Immature Granulocyte Absolute 0.01 K/mm3 (0.00-0.031); Immature Granulocyte Percent A 0.1 % (0-0.5); Lymphocytes Absolute Auto 2.46 K/mm3 (0.9-3.2); Lymphocytes Percent Auto 31.7 % (18.3-44.2); Mean Corpuscular HGB Conc 32.9 g/dl (32-36); Mean Corpuscular Hemoglobin 33.8 pg (26-34); Mean Corpuscular Volume 102.8 fl (80-100); Mean Platelet Volume 11.4 fl (7.4-10.4); Monocytes Absolute Auto 0.6 K/mm3 (0.1-0.6); Monocytes Percent Auto 7.5 % (2.6-8.5); Neutrophils Absolute Auto 4.5 K/mm3 (1.3-6.7); Neutrophils Percent Auto 57.8 % (45.5-73.1); Platelet Count Result 152 k/mm3 (150-375); Red Blood Count 3.61 M/mm3 (4.2-5.4); White Blood Count 7.8 K/mm3 (4.5-10.0)
[2020-11-22 08:38] LABS: Cholesterol 130 mg/dL (0-200); HDL Direct 28 mg/dL; Lipase 989 U/L (23-300); Magnesium 1.4 mg/dL (1.6-2.3); Triglycerides 83 mg/dL (<150)
[2020-11-22 08:39] LABS: Alanine Aminotransferase 41 U/L (4-35); Albumin Level 3.2 g/dL (3.5-5.1); Alkaline Phosphatase 100 U/L (38-126); Anion Gap 4 mmol/L (8-16); Aspartate Amino Transferase 100 U/L (14-36); Bilirubin,Total 0.8 mg/dL (0.2-1.3); Calcium 7.7 mg/dL (8.4-10.2); Carbon Dioxide 32 mmol/L (22-30); Chloride 103 mmol/L (98-107); Estimated CRCL calculation 156 ml/min; Estimated Glomerular Filt Rate > 60; Glucose 89 mg/dL (65-105); Potassium 3.1 mmol/L (3.4-5.0); Sodium 139 mmol/L (137-145)
[2020-11-22 08:49] LABS: LDL Cholesterol Direct 81 mg/dL
[2020-11-22 09:19] LABS: Blood Urea Nitrogen < 2 mg/dL (7-17)
[2020-11-22] MEDS: POTASSIUM CHLORIDE 20 MEQ PACKET (FOR LIQUID) 40 MEQ PO ×3 (09:38→18:55)
[2020-11-22] MEDS: KCL 20 MEQ/D5/0.9% SOD CHL 1,000 ML 125 ML IV CONT ×2 (09:38→19:58)
[2020-11-22] MEDS: POTASSIUM CHLORIDE 20 MEQ PACKET (FOR LIQUID) PO (09:39)
[2020-11-22] MEDS: LOPERAMIDE HCL 2 MG CAPSULE 4 MG PO ×3 (09:39→18:55)
[2020-11-22] MEDS: PREGABALIN (*CRX) 75 MG CAPSULE PO ×2 (09:39→20:07)
[2020-11-22] MEDS: FLUTICASONE PROPIONATE 0.05% NA SPR 16 GM BTL (*BKC) 1 SPRAY NASAL (09:39)
[2020-11-22] MEDS: THIAMINE HCL 200 MG/2 ML VIAL 100 MG IV PUSH (09:40)
--- NOTE | 2020-11-22 14:07 | PM.IMPN ---
Progress Note: A&P Assessment and Plan (1) Hypokalemia: Code(s): E87.6 - Hypokalemia Status: Acute Assessment and Plan: KCL PO and IV F/u lab (2) Hypomagnesemia: Code(s): E83.42 - Hypomagnesemia Status: Acute Assessment and Plan: IV mag F/u lab (3) Alcoholic hepatitis: Qualifiers: Ascites presence: unspecified Qualified Code(s): K70.10 - Alcoholic hepatitis without ascites Code(s): K70.10 - Alcoholic hepatitis without ascites Status: Acute Assessment and Plan: Improving Not requiring steroids Hepatitis ABC serologies negative (4) Gastroenteritis: Code(s): K52.9 - Noninfective gastroenteritis and colitis, unspecified Status: Acute Assessment and Plan: Likely viral Improving with conservative management (5) Elevated lipase: Code(s): R74.8 - Abnormal levels of other serum enzymes Status: Acute Assessment and Plan: Mild alcohol-induced pancreatitis Currently pain-free Advanced diet as tolerated (6) Cirrhosis of liver: Qualifiers: Hepatic cirrhosis type: alcoholic cirrhosis Ascites presence: without ascites Qualified Code(s): K70.30 - Alcoholic cirrhosis of liver without ascites Code(s): K74.60 - Unspecified cirrhosis of liver Status: Acute Assessment and Plan: Patient was previously unaware this Long discussion regarding avoiding alcohol and other hepatotoxic agents Discussed risk progressing to hepatic failure which would require liver transplant (7) Liver mass: Code(s): R16.0 - Hepatomegaly, not elsewhere classified Status: Acute Assessment and Plan: Likely due to cirrhosis Neoplasm less likely Will need follow-up imaging Subjective Date/time seen: 11/22/20 14:07 Interval history: Admitted with nausea vomiting and diarrhea as well as elevated liver and pancreatic enzymes. No melena or hematemesis. Was exposed to a neighbor's child who was diagnosed with gastroenteritis. Admits to drinking 3 shots of fireball before bedtime but only on weekends. However she is concerned about alcohol withdrawal. She will be homeless at the end of the month. Currently stain with someone. 11/22: Minimal diarrhea. Tolerated food and drink. Denied palpitations chest pain dyspnea edema muscle cramps dizziness weakness or bleeding. Review of Systems Review of Systems: All systems reviewed & are unremarkable except as noted in HPI and below Exam Narrative: Exam Narrative: HEENT: EOMI, PERRL, sclerae nonicteric, pharyngeal mucosa pink and intact NECK: No JVD CHEST: Clear to auscultation. Normal effort. HEART: NL S1/S2, regular, no murmur ABDOMEN: BS+, soft, nontender, no mass, no bruits EXTREMITIES: No cyanosis, edema, or clubbing NEUROLOGIC: CN intact and symmetric to inspection. MUSCULOSKELETAL: Tone and strength symmetric. PSYCH: Alert. Oriented to person, place, and time. Objective Data Vital Signs Vital Signs: Vital Signs - 24 hr 11/21/20 16:00 11/21/20 20:00 11/21/20 22:00 Temperature 96.6 F L Pulse Rate 89 75 88 Respiratory Rate 16 Blood Pressure 100/76 Pulse Oximetry 95 11/22/20 00:00 11/22/20 04:00 11/22/20 06:00 Temperature 97.1 F L Pulse Rate 76 71 70 Respiratory Rate 16 Blood Pressure 91/62 L Pulse Oximetry 100 11/22/20 08:00 Temperature Pulse Rate 70 Respiratory Rate 16 Blood Pressure Pulse Oximetry 100 Intake/Output Intake/Output: Intake & Output 11/19/20 11/20/20 11/21/20 11/22/20 23:59 23:59 23:59 23:59 Intake Total 2220 1800 Output Total 1300 2200 Balance 920 -400 Meds/Results Medications: Active Medications Generic Name Dose Route Start Last Admin Trade Name Freq PRN Reason Stop Dose Admin Acetaminophen 650 mg 11/21/20 01:32 Acetaminophen 325 Mg Tablet PO Q4H PRN Mild Pain (1-3) or Fever Chlordiazepoxide HCl 25 mg 11/21/20 01:36 11/21/20 22:25 Chlor
[2020-11-22] MEDS: chlordiazePOXIDE (*CRX) 25 MG CAPSULE PO (15:19)
[2020-11-22] MEDS: MAGNESIUM SULF 2 GM/WATER 50ML 2 GM/50 ML BAG IVPB (15:20)
[2020-11-22] MEDS: LORATADINE 10 MG TABLET PO (20:07)
--- NOTE | 2020-11-22 21:57 | PC.NURSE ---
I spoke with Dr Zambrano via telephone 11/22/2020 regarding patient having low blood pressure on 11/22/[address] day shift . Per Dr Zambrano we will begin monitoring vitals signs q4 hrs.
--- NOTE | 2020-11-22 23:46 | PC.NURSE ---
Patients IV was found to be infiltrated and access discontinued. After multiple attempts by myself and the camp housekeeper, IV access could not be re-established. The physician kindergarten instructional assistant telephone advice nurse was notified by phone and will place additional orders for po medications if needed.
[2020-11-23] VITALS (8 sets, daily range): BP systolic 117–129; BP diastolic 76–90; PULSE 64–90; RESP 16–18; TEMP 36.3–36.5; O2SAT 99–100
[2020-11-23] MEDS: PREGABALIN (*CRX) 75 MG CAPSULE PO ×2 (08:24→21:15)
[2020-11-23] MEDS: POTASSIUM CHLORIDE 20 MEQ PACKET (FOR LIQUID) PO (08:25)
[2020-11-23] MEDS: LOPERAMIDE HCL 2 MG CAPSULE 4 MG PO ×3 (08:25→18:05)
[2020-11-23] MEDS: FLUTICASONE PROPIONATE 0.05% NA SPR 16 GM BTL (*BKC) 1 SPRAY NASAL (08:26)
[2020-11-23 08:31] LABS: Basophils Absolute Auto 0.1 K/mm3 (0.0-0.1); Basophils Percent Auto 0.7 % (0.2-1.2); Eosinophils Absolute Auto 0.2 K/mm3 (0-0.3); Eosinophils Percent Auto 2.6 % (0-4.4); Hematocrit 39.6 % (37.0-47.0); Hemoglobin 12.9 g/dL (12.0-15.0); Immature Granulocyte Absolute 0.03 K/mm3 (0.00-0.031); Immature Granulocyte Percent A 0.3 % (0-0.5); Lymphocytes Absolute Auto 2.75 K/mm3 (0.9-3.2); Lymphocytes Percent Auto 29.3 % (18.3-44.2); Mean Corpuscular HGB Conc 32.6 g/dl (32-36); Mean Corpuscular Hemoglobin 33.6 pg (26-34); Mean Corpuscular Volume 103.1 fl (80-100); Mean Platelet Volume 11.4 fl (7.4-10.4); Monocytes Absolute Auto 0.8 K/mm3 (0.1-0.6); Monocytes Percent Auto 8.2 % (2.6-8.5); Neutrophils Absolute Auto 5.5 K/mm3 (1.3-6.7); Neutrophils Percent Auto 58.9 % (45.5-73.1); Platelet Count Result 141 k/mm3 (150-375); Red Blood Count 3.84 M/mm3 (4.2-5.4); Red Cell Distribution Width 19.1 % (11.5-14.5); White Blood Count 9.4 K/mm3 (4.5-10.0)
[2020-11-23 09:27] LABS: Alanine Aminotransferase 36 U/L (4-35); Albumin Level 3.5 g/dL (3.5-5.1); Alkaline Phosphatase 111 U/L (38-126); Anion Gap 11 mmol/L (8-16); Aspartate Amino Transferase 86 U/L (14-36); Bilirubin,Total 0.7 mg/dL (0.2-1.3); Calcium 8.6 mg/dL (8.4-10.2); Carbon Dioxide 24 mmol/L (22-30); Chloride 104 mmol/L (98-107); Estimated CRCL calculation 156 ml/min; Estimated Glomerular Filt Rate > 60; Glucose 91 mg/dL (65-105); Lipase 1240 U/L (23-300); Magnesium 1.3 mg/dL (1.6-2.3); Potassium 3.5 mmol/L (3.4-5.0); Sodium 139 mmol/L (137-145)
[2020-11-23 09:29] LABS: Blood Urea Nitrogen < 2 mg/dL (7-17)
[2020-11-23] MEDS: MAGNESIUM OXIDE 400 MG TABLET 800 MG PO (12:09)
[2020-11-23] MEDS: THIAMINE HCL 100 MG TABLET PO (12:10)
[2020-11-23] MEDS: POTASSIUM CHLORIDE 20 MEQ PACKET (FOR LIQUID) 40 MEQ PO (12:20)
[2020-11-23 15:28] LABS: Anion Gap 8 mmol/L (8-16); Calcium 8.6 mg/dL (8.4-10.2); Carbon Dioxide 25 mmol/L (22-30); Chloride 106 mmol/L (98-107); Estimated CRCL calculation 156 ml/min; Estimated Glomerular Filt Rate > 60; Glucose 104 mg/dL (65-105); Magnesium 1.3 mg/dL (1.6-2.3); Potassium 5.2 mmol/L (3.4-5.0); Sodium 139 mmol/L (137-145)
[2020-11-23 15:41] LABS: Blood Urea Nitrogen < 2 mg/dL (7-17)
--- NOTE | 2020-11-23 16:41 | PM.IMPN ---
Progress Note: A&P Assessment and Plan (1) Hypokalemia: Code(s): E87.6 - Hypokalemia Status: Acute Assessment and Plan: KCL PO and IV F/u lab 11/23/20 16:41 Patient 35-year-old female with history of alcohol abuse was admitted with nausea, vomiting and diarrhea patient had a CT scan of abdomen shows patient with liver cirrhosis, this is a new finding for the patient acute hepatitis panel is negative, most likely secondary to alcohol abuse, today patient states feeling better and insisting to go home, her potassium and magnesium were low and patient is refusing IV placement, patient is being treated with oral magnesium will continue to monitor, patient not showing any sign of DT, will do liver ultrasound to further evaluate, if remains clinically stable, her electrolytes within normal may discharge home tomorrow. (2) Hypomagnesemia: Code(s): E83.42 - Hypomagnesemia Status: Acute Assessment and Plan: IV mag F/u lab (3) Alcoholic hepatitis: Qualifiers: Ascites presence: unspecified Qualified Code(s): K70.10 - Alcoholic hepatitis without ascites Code(s): K70.10 - Alcoholic hepatitis without ascites Status: Acute Assessment and Plan: Improving Not requiring steroids Hepatitis ABC serologies negative (4) Gastroenteritis: Code(s): K52.9 - Noninfective gastroenteritis and colitis, unspecified Status: Acute Assessment and Plan: Likely viral Improving with conservative management (5) Elevated lipase: Code(s): R74.8 - Abnormal levels of other serum enzymes Status: Acute Assessment and Plan: Mild alcohol-induced pancreatitis Currently pain-free Advanced diet as tolerated (6) Cirrhosis of liver: Qualifiers: Hepatic cirrhosis type: alcoholic cirrhosis Ascites presence: without ascites Qualified Code(s): K70.30 - Alcoholic cirrhosis of liver without ascites Code(s): K74.60 - Unspecified cirrhosis of liver Status: Acute Assessment and Plan: Patient was previously unaware this Long discussion regarding avoiding alcohol and other hepatotoxic agents Discussed risk progressing to hepatic failure which would require liver transplant (7) Liver mass: Code(s): R16.0 - Hepatomegaly, not elsewhere classified Status: Acute Assessment and Plan: Likely due to cirrhosis Neoplasm less likely Will need follow-up imaging Additional Plan Hypokalemia and hypomagnesemia due to dehydration complicating chronic alcoholism. Patient received 40 of IV potassium and 40 of p.o. potassium in the ER. The patient had received 1 g magnesium sulfate rider in the ER and I requested a total of 4 g be given. Electrolytes supplementation has been provided. Will repeat BMP, magnesium, and phosphorus level this a.m.. The importance of continuing electrolyte supplementation at home will be discussed with the patient. The patient has been encouraged to continue her home loperamide for chronic diarrhea. Will advance diet as tolerated to regular. The patient is eager to go home if her electrolytes have normalized. The patient has chronically elevated transaminases but there higher at this time likely due to alcoholism, hepatic steatosis and acute dehydration. Will repeat LFTs with a.m. labs. The patient's lipase is mildly elevated but I suspect this is more due to her dehydration. Will repeat lipase with a.m. labs. For the patient's alcoholism will check CIWA scores q.4 hours and provide Librium as needed for symptoms of withdrawal. Will provide IV thiamine supplementation each a.m. Patient has been admitted as observation status. Subjective Date/time seen: 11/23/20 16:41 Patient 35-year-old female with history of alcohol abuse was admitted with nausea, vomiting and diarrhea patient had a CT scan of abdomen shows patient with liver cirrhosis, this is a new finding for the patient acute hepatitis panel is negative,
[2020-11-23] MEDS: chlordiazePOXIDE (*CRX) 25 MG CAPSULE PO ×2 (16:44→23:37)
[2020-11-23] MEDS: MAGNESIUM OXIDE 400 MG TABLET 1200 MG PO (18:04)
[2020-11-23] MEDS: LORATADINE 10 MG TABLET PO (21:15)
[2020-11-24] VITALS: PULSE 76
[2020-11-24 04:00] VITALS: PULSE 74
[2020-11-24 05:39] LABS: Basophils Absolute Auto 0.1 K/mm3 (0.0-0.1); Eosinophils Absolute Auto 0.2 K/mm3 (0-0.3); Eosinophils Percent Auto 2.3 % (0-4.4); Hematocrit 38.4 % (37.0-47.0); Hemoglobin 12.7 g/dL (12.0-15.0); Immature Granulocyte Absolute 0.02 K/mm3 (0.00-0.031); Immature Granulocyte Percent A 0.2 % (0-0.5); Lymphocytes Absolute Auto 2.69 K/mm3 (0.9-3.2); Mean Corpuscular HGB Conc 33.1 g/dl (32-36); Mean Corpuscular Hemoglobin 33.6 pg (26-34); Mean Corpuscular Volume 101.6 fl (80-100); Mean Platelet Volume 11.7 fl (7.4-10.4); Monocytes Absolute Auto 0.7 K/mm3 (0.1-0.6); Monocytes Percent Auto 7.5 % (2.6-8.5); Neutrophils Absolute Auto 5.3 K/mm3 (1.3-6.7); Platelet Count Result 131 k/mm3 (150-375); Red Blood Count 3.78 M/mm3 (4.2-5.4); Red Cell Distribution Width 18.9 % (11.5-14.5)
[2020-11-24 05:51] LABS: Alanine Aminotransferase 29 U/L (4-35); Alkaline Phosphatase 100 U/L (38-126); Anion Gap 11 mmol/L (8-16); Aspartate Amino Transferase 75 U/L (14-36); Bilirubin,Total 0.4 mg/dL (0.2-1.3); Blood Urea Nitrogen < 2 mg/dL (7-17); Calcium 8.5 mg/dL (8.4-10.2); Carbon Dioxide 19 mmol/L (22-30); Chloride 106 mmol/L (98-107); Estimated CRCL calculation 156 ml/min; Estimated Glomerular Filt Rate > 60; Glucose 102 mg/dL (65-105); Lipase 955 U/L (23-300); Magnesium 1.5 mg/dL (1.6-2.3); Potassium 4.2 mmol/L (3.4-5.0); Sodium 136 mmol/L (137-145)
[2020-11-24 06:00] VITALS: BP 106/67; PULSE 57; RESP 18; TEMP 35.9; O2SAT 100
[2020-11-24 08:00] VITALS: PULSE 76
[2020-11-24] MEDS: FLUTICASONE PROPIONATE 0.05% NA SPR 16 GM BTL (*BKC) 1 SPRAY NASAL (08:32)
[2020-11-24] MEDS: PREGABALIN (*CRX) 75 MG CAPSULE PO (08:33)
[2020-11-24] MEDS: MAGNESIUM OXIDE 400 MG TABLET 800 MG PO (08:33)
[2020-11-24] MEDS: POTASSIUM CHLORIDE 20 MEQ PACKET (FOR LIQUID) PO (08:33)
[2020-11-24] MEDS: THIAMINE HCL 100 MG TABLET PO (08:34)
[2020-11-24 08:36] VITALS: BP 130/92; PULSE 70
--- NOTE | 2020-11-24 12:36 | PM.DS ---
DS: Admitting Diagnosis Admitting Diagnosis Admitting Diagnosis: (1) Hypokalemia: Code(s): E87.6 - Hypokalemia Status: Acute (2) Hypomagnesemia: Code(s): E83.42 - Hypomagnesemia Status: Acute (3) Alcoholic hepatitis: Qualifiers: Ascites presence: unspecified Qualified Code(s): K70.10 - Alcoholic hepatitis without ascites Code(s): K70.10 - Alcoholic hepatitis without ascites Status: Acute (4) Dehydration: Code(s): E86.0 - Dehydration Status: Acute DS: Discharge Diagnosis Discharge Diagnosis (1) Hypokalemia: Code(s): E87.6 - Hypokalemia Status: Acute Assessment and Plan: KCL PO and IV F/u lab 11/23/20 16:41 Patient 35-year-old female with history of alcohol abuse was admitted with nausea, vomiting and diarrhea patient had a CT scan of abdomen shows patient with liver cirrhosis, this is a new finding for the patient acute hepatitis panel is negative, most likely secondary to alcohol abuse, today patient states feeling better and insisting to go home, her potassium and magnesium were low and patient is refusing IV placement, patient is being treated with oral magnesium will continue to monitor, patient not showing any sign of DT, will do liver ultrasound to further evaluate, if remains clinically stable, her electrolytes within normal may discharge home tomorrow. (2) Hypomagnesemia: Code(s): E83.42 - Hypomagnesemia Status: Acute Assessment and Plan: IV mag F/u lab (3) Alcoholic hepatitis: Qualifiers: Ascites presence: unspecified Qualified Code(s): K70.10 - Alcoholic hepatitis without ascites Code(s): K70.10 - Alcoholic hepatitis without ascites Status: Acute Assessment and Plan: Improving Not requiring steroids Hepatitis ABC serologies negative (4) Gastroenteritis: Code(s): K52.9 - Noninfective gastroenteritis and colitis, unspecified Status: Acute Assessment and Plan: Likely viral Improving with conservative management (5) Elevated lipase: Code(s): R74.8 - Abnormal levels of other serum enzymes Status: Acute Assessment and Plan: Mild alcohol-induced pancreatitis Currently pain-free Advanced diet as tolerated (6) Cirrhosis of liver: Qualifiers: Hepatic cirrhosis type: alcoholic cirrhosis Ascites presence: without ascites Qualified Code(s): K70.30 - Alcoholic cirrhosis of liver without ascites Code(s): K74.60 - Unspecified cirrhosis of liver Status: Acute Assessment and Plan: Patient was previously unaware this Long discussion regarding avoiding alcohol and other hepatotoxic agents Discussed risk progressing to hepatic failure which would require liver transplant (7) Liver mass: Code(s): R16.0 - Hepatomegaly, not elsewhere classified Status: Acute Assessment and Plan: Likely due to cirrhosis Neoplasm less likely Will need follow-up imaging DS: Summary Hospital Course Hospital Course: Chief Complaint: Vomiting for 1 day Narrative: 35-year-old female with past medical history of chronic alcohol abuse, chronic diarrhea and chronic hypokalemia who presented to the ER after having numerous episodes of vomiting over the last 24 hours. She reports that she started vomiting the minute she woke up. She denies having any abdominal pain. She was unable to take her loperamide because of her vomiting. She subsequently had about 7 watery stools yesterday. She has only been taking her potassium supplements intermittently and has not been taking them recently. She has not been having any associated abdominal pain. She denies any coffee-ground emesis or hematemesis. She has not had any further vomiting since presenting to the ER. Her last alcoholic beverage was on the evening of the . She reported that she drinks 3 shots of fireball before going to bed. She has managed to cut down on her alcohol use an
== END 2020-11-24 12:38 | disposition home or self-care (01) | DRG 280 ==
LOC: ANHED 11-21 02:48 → ANH3MEDSUR 11-21 02:54
PROVIDERS: Family Medicine; Internal Medicine; Admitting Provider Internal Medicine; Emergency Provider Emergency Medicine; PCP Emergency Medicine; Visit Provider Internal Medicine
DX: K70.10 Alcoholic hepatitis without ascites (principal); A08.4 Viral intestinal infection, unspecified; K85.20 Alcohol induced acute pancreatitis without necrosis or infection; E87.6 Hypokalemia; E86.0 Dehydration; K70.30 Alcoholic cirrhosis of liver without ascites; E83.42 Hypomagnesemia; F10.20 Alcohol dependence, uncomplicated; Y90.9 Presence of alcohol in blood, level not specified; Z91.14 Patient's other noncompliance with medication regimen; F41.9 Anxiety disorder, unspecified; F32.9 Major depressive disorder, single episode, unspecified; F41.0 Panic disorder [episodic paroxysmal anxiety]; F17.210 Nicotine dependence, cigarettes, uncomplicated; D53.9 Nutritional anemia, unspecified
CPT/HCPCS: 36415; 74177; 76705; 80048; 80053; 80061; 80076; 81001; 81025; 83690; 83735; 84100; 85025; 85027; 87086; 87088; 96361; 96365; 96366; 96374; 96375; 96376; 99285; A9270; G0378; G0379; J2405; J3411; J3475; J3480; J7030; Q9967

== ENCOUNTER 2021-01-01 10:07 | Outpatient (CLI) | payer OTHER, SELFPAY ==
--- NOTE | ~2021-01-01 | MR_ITS ---
EXAMINATION: MR knee LT wo con DATE: 01/01/2021 11:26 INDICATION: Left knee pain. TECHNIQUE: Magnetic resonance imaging (MRI) of the left knee was performed without intravenous contra st. Sequences included axial PD-weighted FS FSE, coronal PD-weighted FSE and PD-weighted FS FSE, sagi ttal PD-weighted FSE, and sagittal T2-weighted FS FSE. COMPARISON: Left knee radiographs 05/21/2019 FINDINGS: Medial compartment: Medial meniscus is normal. Medial compartment cartilage is normal. There is mild edema-like marrow si gnal intensity in medial aspect of medial femoral condyle, likely stress reaction. Lateral compartment: Lateral meniscus is normal. Lateral compartment cartilage is normal. Patellofemoral compartment: There is shallow partial-thickness cartilage loss of patellar medial facet. Trochlear cartilage is no rmal. Ligaments and tendons: The anterior and posterior cruciate ligaments are normal. Medial collateral ligament and lateral malachi ateral ligament complex are normal. There is mild patellar tendinopathy. Fluid: There is a small knee joint effusion. There is trace fluid in a Vaughn's cyst. IMPRESSION: 1. Mild patellar chondrosis. 2. Small knee joint effusion. Reviewed, dictated and finalized at location A.
--- NOTE | ~2021-01-01 | MR_ITS ---
EXAMINATION: MR lumbar spine wo con DATE: 01/01/2021 11:26 INDICATION: Lumbar radiculopathy. TECHNIQUE: Magnetic resonance imaging (MRI) of the lumbar spine was performed without intravenous con trast. Sequences included sagittal T2-weighted FSE, sagittal T2-weighted FS FSE, sagittal T1-weighted FSE, and axial T2-weighted FSE. COMPARISON: None FINDINGS: There is 4 degrees levocurvature of lumbar spine. There is a Schmorl's node of L3 superior endplate. Intervertebral disc heights are normal. The distal spinal cord signal intensity is normal. The conus medullaris is at T12-L1. The following disc levels are specifically discussed: L1-L2 through L3-L4: The disc does not extend beyond the endplate margin. There is no facet joint ost eoarthritis. There is no neural foraminal stenosis. There is no central canal stenosis. L4-L5 and L5-S1: The disc does not extend beyond the endplate margin. There is mild bilateral facet j oint osteoarthritis. There is no neural foraminal stenosis. There is no central canal stenosis. IMPRESSION: 1. 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 Reviewed, dictated and finalized at location A.
== END 2021-01-01 10:08 | disposition home or self-care (01) ==
LOC: ANHIMG 10:13
PROVIDERS: PCP Emergency Medicine; Visit Provider Emergency Medicine
DX: M25.562 Pain in left knee (principal); M54.16 Radiculopathy, lumbar region; M47.816 Spondylosis without myelopathy or radiculopathy, lumbar region; M22.2X2 Patellofemoral disorders, left knee; M25.462 Effusion, left knee
CPT/HCPCS: 72148; 73721

== ENCOUNTER 2021-01-04 13:51 | Outpatient (CLI) | payer OTHER, SELFPAY ==
[2021-01-04 15:55] LABS: Basophils Absolute Auto 0.1 K/mm3 (0.0-0.1); Basophils Percent Auto 1.2 % (0.2-1.2); Eosinophils Absolute Auto 0.1 K/mm3 (0-0.3); Eosinophils Percent Auto 1.4 % (0-4.4); Hematocrit 41.7 % (37.0-47.0); Hemoglobin 13.6 g/dL (12.0-15.0); Immature Granulocyte Absolute 0.02 K/mm3 (0.00-0.031); Immature Granulocyte Percent A 0.3 % (0-0.5); Immature Platelet Fraction Pct 20.2 % (0.9-11.2); Lymphocytes Percent Auto 22.8 % (18.3-44.2); Mean Corpuscular HGB Conc 32.6 g/dl (32-36); Mean Corpuscular Hemoglobin 32.6 pg (26-34); Monocytes Absolute Auto 0.7 K/mm3 (0.1-0.6); Monocytes Percent Auto 10.7 % (2.6-8.5); Neutrophils Absolute Auto 4.2 K/mm3 (1.3-6.7); Neutrophils Percent Auto 63.6 % (45.5-73.1); Platelet Count Result 85 k/mm3 (150-375); Red Blood Count 4.17 M/mm3 (4.2-5.4); Red Cell Distribution Width 15.8 % (11.5-14.5); White Blood Count 6.6 K/mm3 (4.5-10.0)
[2021-01-04 16:05] LABS: INR 1.2; Prothrombin Time 15.1 Seconds (11.1-14.7)
[2021-01-04 16:06] LABS: Ammonia 15 umol/L (9-30)
[2021-01-04 19:46] LABS: Alanine Aminotransferase 71 U/L (4-35); Albumin Level 4.1 g/dL (3.5-5.1); Alkaline Phosphatase 137 U/L (38-126); Anion Gap 13 mmol/L (8-16); Aspartate Amino Transferase 157 U/L (14-36); Blood Urea Nitrogen 4 mg/dL (7-17); Carbon Dioxide 18 mmol/L (22-30); Chloride 104 mmol/L (98-107); Estimated Glomerular Filt Rate > 60; Glucose 99 mg/dL (65-105); Sodium 135 mmol/L (137-145)
[2021-01-04 19:52] LABS: Cholesterol 165 mg/dL (0-200); HDL Direct 39 mg/dL; Triglycerides 135 mg/dL (<150)
[2021-01-04 20:03] LABS: LDL Cholesterol Direct 105 mg/dL
[2021-01-04 20:10] LABS: Hepatitis B Surface Antigen Negative (Negative)
[2021-01-04 20:18] LABS: Vitamin D 25 Hydroxy 39.5 ng/mL
[2021-01-04 20:20] LABS: Iron 375 ug/dL (37-170)
[2021-01-04 20:21] LABS: Percent Iron Saturation 100 % (20-50)
[2021-01-04 20:23] LABS: HAV RESULT Reactive (Negative)
[2021-01-04 20:28] LABS: Hepatitis C Virus Antibody Negative (Negative)
[2021-01-04 21:00] LABS: Hepatitis B Core Antibody, IgM 1.03 S/C
[2021-01-04 21:11] LABS: Folic Acid 5.1 ng/mL (2.76->20)
[2021-01-04 21:48] LABS: Hepatitis B Core Retest 1 1.05; Hepatitis B Core Retest 2 1.03 s/c
[2021-01-05 06:15] LABS: Hepatitis B Core IgM Result Reactive (Negative)
[2021-01-06 10:52] LABS: Alpha-1-Antitrypsin, QN 142 mg/dL (83-199); Ceruloplasmin 27 mg/dL (18-53)
[2021-01-07 18:58] LABS: Hepatitis A Antibody Total Nonreactive (Nonreactive)
== END 2021-01-04 13:52 | disposition home or self-care (01) ==
LOC: ANHLAB 13:56
PROVIDERS: PCP Emergency Medicine; Visit Provider Emergency Medicine
DX: E78.5 Hyperlipidemia, unspecified (principal); K70.30 Alcoholic cirrhosis of liver without ascites; G62.9 Polyneuropathy, unspecified; R93.2 Abnormal findings on diagnostic imaging of liver and biliary tract
CPT/HCPCS: 36415; 80048; 80053; 80061; 80074; 80076; 82103; 82105; 82140; 82306; 82390; 82607; 82728; 82746; 83540; 83550; 85025; 85055; 85610; 86038; 86255; 86708

== ENCOUNTER 2021-02-01 22:32 | Emergency (ER) | payer OTHER, SELFPAY ==
[2021-02-01 22:34] VITALS: BP 156/104; PULSE 123; RESP 16; TEMP 36.9; O2SAT 100
[2021-02-01 23:01] LABS: Basophils Absolute Auto 0.1 K/mm3 (0.0-0.1); Basophils Percent Auto 0.5 % (0.2-1.2); Hematocrit 41.8 % (37.0-47.0); Immature Granulocyte Absolute 0.03 K/mm3 (0.00-0.031); Immature Granulocyte Percent A 0.3 % (0-0.5); Lymphocytes Absolute Auto 0.89 K/mm3 (0.9-3.2); Lymphocytes Percent Auto 8.6 % (18.3-44.2); Mean Corpuscular HGB Conc 33.5 g/dl (32-36); Mean Corpuscular Hemoglobin 31.9 pg (26-34); Mean Corpuscular Volume 95.2 fl (80-100); Mean Platelet Volume 10.7 fl (7.4-10.4); Monocytes Absolute Auto 0.8 K/mm3 (0.1-0.6); Monocytes Percent Auto 8.2 % (2.6-8.5); Neutrophils Absolute Auto 8.5 K/mm3 (1.3-6.7); Neutrophils Percent Auto 82.4 % (45.5-73.1); Platelet Count Result 210 k/mm3 (150-375); Red Blood Count 4.39 M/mm3 (4.2-5.4); Red Cell Distribution Width 17.1 % (11.5-14.5); White Blood Count 10.3 K/mm3 (4.5-10.0)
[2021-02-01 23:11] LABS: Albumin Level 4.8 g/dL (3.5-5.1); Alkaline Phosphatase 141 U/L (38-126); Anion Gap 17 mmol/L (8-16); Bilirubin,Total 0.9 mg/dL (0.2-1.3); Blood Urea Nitrogen 4 mg/dL (7-17); Calcium 9.2 mg/dL (8.4-10.2); Carbon Dioxide 22 mmol/L (22-30); Chloride 102 mmol/L (98-107); Estimated CRCL calculation 133 ml/min; Estimated Glomerular Filt Rate > 60; Glucose 129 mg/dL (65-110); Lipase 171 U/L (23-300); Potassium 3.3 mmol/L (3.4-5.0); Sodium 141 mmol/L (137-145)
[2021-02-01 23:36] LABS: Alanine Aminotransferase 57 U/L (4-35); Aspartate Amino Transferase 119 U/L (14-36)
--- NOTE | 2021-02-02 02:12 | ED.NAVMDI ---
HPI - Nausea/Vomiting/Diarrhea General Chief complaint: Nausea/Vomiting/Diarrhea Stated complaint: vomiting/ diarrhea Time Seen by Provider: 02/02/21 01:32 Source: patient and RN notes reviewed Mode of arrival: ambulatory Limitations: no limitations History of Present Illness HPI Narrative: This is a 35 year old female with history of alcoholism, cirrhosis, recent hepatitis A who presents for evaluation of nausea, vomiting and diarrhea. Patient states she drank alcohol on Monday night and she developed nausea, vomiting and diarrhea Monday morning. She states her nausea and vomiting are intermittent. She has been able to drink water without vomiting throughout the day. She has not had emesis for a few hours. She denies blood in her emesis or diarrhea. She reports 5 episodes of diarrhea. She denies fever or chills. She also reports feeling anxious and shaky. She has not drank since Monday. Related Data Home Medications Medication Instructions Recorded Confirmed chlordiazepoxide HCl 10 mg PO BID PRN 11/04/20 11/21/20 fluticasone propionate 1 spray INTRANASAL DAILY 11/04/20 11/21/20 loperamide 4 mg PO TID 11/04/20 11/21/20 pregabalin [Lyrica] 75 mg PO BID 11/04/20 11/21/20 ondansetron HCl 4 mg PO Q6H PRN 11/21/20 11/21/20 potassium chloride 20 meq PO DAILY 11/21/20 11/21/20 Allergies Allergy/AdvReac Type Severity Reaction Status Date / Time adhesive tape Allergy Unknown Unknown Verified 11/20/20 23:03 bee venom protein (honey bee) Allergy Unknown swelling Verified 11/20/20 23:03 sertraline [From Zoloft] Allergy Unknown Unknown Verified 11/20/20 23:03 venom-wasp Allergy Unknown swell up Verified 11/20/20 23:03 azithromycin Allergy Unknown Verified 11/20/20 23:03 Review of Systems Review of Systems: All systems reviewed & are unremarkable except as noted in HPI and below PMFSH Past Medical History Medical History Alcoholism Anxiety Chronic sinus infection Cirrhosis of liver Depression GERD (gastroesophageal reflux disease) Hepatic steatosis Hypokalemia Liver mass Macrocytic anemia Due to alcohol abuse Panic attacks Surgical History Surgical History No significant past surgical history Family History Family History (Updated 11/21/20 @ 06:45 by Barbara Zambrano DO) Mother , Diet at age 52 Lung cancer Father , Patient said was murdered found out doing autopsy he had cancer Cancer Mother No problems noted. Social History Social History (Updated 11/21/20 @ 06:46 by Barbara Zambrano DO) Social History: Ms. 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 She reports previously drinking around 14 shots per day of Fireball whiskey and has now cut back to 2 to 4 shots daily. She is smoking 1 half pack per day of cigarettes since age 15 years old. She denies other substance use. She is currently on medical leave Primary care physician: Dr. Marcus Stevenson Code status: Full code Smoking packs per day: 0.5 Smoking cigarettes per day: 10.0 Years smoked: 19 Smoking pack-years: 9.50 Smoking status: Current every day smoker Tobacco type: cigarettes Second hand tobacco smoke exposure: Yes Additional smoking assessment comments: Pt states that she smokes under 1/2 pack per day. Alcohol intake: current Drinks per week: 20 Alcohol use details: alcoholic Substance use: current Substance use type: marijuana Other substance usage details: occasional Gender identity (if verbalized by the patient): Female Spiritual care concerns: No Exam Const: General: no acute distress and alert Orientation/consciousness: patient oriented x3 Eyes: Pupils: Equal, round and reactive pupils present EOM: EOMs intact bilaterally Chest: Chest palpation & inspection: normal inspection o
[2021-02-02 02:25] VITALS: BP 143/102; PULSE 106
[2021-02-02 02:25] LABS: INR 1.2; Partial Thromboplastin Time 29.9 SECONDS (22.3-36.8); Prothrombin Time 14.8 Seconds (11.1-14.7)
[2021-02-02] MEDS: ONDANSETRON INJ 4 MG/2 ML VIAL IV PUSH (02:26)
[2021-02-02] MEDS: LORazepam INJ (*CRX) 2 MG/ML VIAL 1 MG IV PUSH (02:26)
[2021-02-02] MEDS: PANTOPRAZOLE SODIUM IV 40 MG VIAL IV PUSH (02:27)
[2021-02-02] MEDS: SODIUM CHLORIDE 0.9% IV 1,000 ML 999 ML IV CONT (02:27)
[2021-02-02 02:30] VITALS: BP 144/97; PULSE 108
[2021-02-02 02:35] VITALS: BP 132/100; PULSE 109
[2021-02-02 02:45] LABS: Ammonia < 9 umol/L (9-30)
[2021-02-02] MEDS: MAGNESIUM SULFATE 3GM/D5W100ML 3 GM/100 ML BAG IVPB (03:30)
[2021-02-02] MEDS: POTASSIUM CHLORIDE 20 MEQ PACKET (FOR LIQUID) 40 MEQ PO (04:11)
[2021-02-02] MEDS: MAG HYDROX/AL HYDROX/SIMETH 30 ML UDC PO (07:01)
[2021-02-02 07:02] VITALS: BP 138/100; PULSE 86; RESP 18; O2SAT 100
== END 2021-02-02 07:02 | disposition home or self-care (01) ==
PROVIDERS: Emergency Provider General Practice; PCP Emergency Medicine
DX: E83.42 Hypomagnesemia (principal); F10.20 Alcohol dependence, uncomplicated; R11.2 Nausea with vomiting, unspecified; F17.210 Nicotine dependence, cigarettes, uncomplicated; K74.60 Unspecified cirrhosis of liver; K21.9 Gastro-esophageal reflux disease without esophagitis; D53.9 Nutritional anemia, unspecified
CPT/HCPCS: 36415; 80053; 81025; 82140; 83690; 83735; 85025; 85610; 85730; 96361; 96365; 96375; 99284; A9270; C9113; J2060; J2405; J3475; J7030

== ENCOUNTER 2021-02-08 13:27 | Outpatient (CLI) | payer OTHER, SELFPAY ==
--- NOTE | ~2021-02-08 | MR_ITS ---
EXAMINATION: MR abdomen wo/w con DATE: 02/08/2021 15:13 INDICATION: Abnormal liver function tests. Cirrhosis of the liver. TECHNIQUE: Magnetic resonance imaging (MRI) of the abdomen was performed without and with 15 mL Multi Jeni intravenous contrast. Sequences included coronal T2-weighted FS FSE, coronal and axial FS FIEST A, axial T2-weighted FSE, coronal LAVA-flex, axial STIR FSE, axial DWI, axial dual-echo T1-weighted F SPGR, and axial LAVA. Postcontrast sequences included coronal LAVA-flex and a time course of axial LA VA. COMPARISON: Abdomen ultrasound 11/24/2020, CT abdomen and pelvis 11/21/2020 FINDINGS: Again seen is a nodule in right lung lower lobe that demonstrated central calcifications on the prior CT, likely benign. The liver demonstrates heterogeneous diffuse steatosis and surface nodularity, co nsistent with cirrhosis. There is no specific evidence of malignancy. There are gallstones in the gal lbladder, which is distended. The spleen is normal in size. The pancreas, adrenal glands, and kidneys are normal. There are no dilated loops of bowel. There is a 4.9 cm cyst in right adnexa, likely a fo llicular cyst. There are no pathologically enlarged lymph nodes. There is no free intraperitoneal flu id. IMPRESSION: 1. Cirrhosis of the liver. 2. Cholelithiasis. Gallbladder distention may be secondary to fasting. Reviewed, dictated and finalized at location B.
[2021-02-08 16:38] LABS: Hematocrit 42.1 % (37.0-47.0); Hemoglobin 13.8 g/dL (12.0-15.0); Mean Corpuscular HGB Conc 32.8 g/dl (32-36); Mean Corpuscular Hemoglobin 31.6 pg (26-34); Mean Corpuscular Volume 96.3 fl (80-100); Mean Platelet Volume 10.7 fl (7.4-10.4); Platelet Count Result 190 k/mm3 (150-375); Red Blood Count 4.37 M/mm3 (4.2-5.4); Red Cell Distribution Width 17.7 % (11.5-14.5)
[2021-02-08 16:44] LABS: INR 1.1; Prothrombin Time 14.5 Seconds (11.1-14.7)
[2021-02-08 16:47] LABS: Alanine Aminotransferase 48 U/L (4-35); Albumin Level 4.9 g/dL (3.5-5.1); Alkaline Phosphatase 134 U/L (38-126); Amylase 94 U/L (30-110); Aspartate Amino Transferase 147 U/L (14-36); Bilirubin,Total 0.7 mg/dL (0.2-1.3); Lipase 345 U/L (23-300)
[2021-02-08 16:48] LABS: Ethanol < 10 mg/dL (<10)
[2021-02-08 18:36] LABS: Iron 20 ug/dL (37-170)
[2021-02-08 18:39] LABS: Hepatitis B Surface Antigen Negative (Negative)
[2021-02-08 18:50] LABS: HIV 1/2 Ab P24 Ag Result Negative (Negative)
[2021-02-08 18:59] LABS: Hepatitis B Surface Anti Res Positive; Hepatitis C Virus Antibody Negative (Negative)
[2021-02-08 22:37] LABS: Hepatitis B Core Antibody, IgM 0.95 S/C
[2021-02-08 23:37] LABS: HAV RESULT Reactive (Negative); Hepatitis B Core Retest 1 0.96; Hepatitis B Core Retest 2 0.96 s/c
[2021-02-09 03:04] LABS: Hepatitis B Core IgM Result Reactive (Negative)
[2021-02-10 20:08] LABS: Hepatitis C RNA, Quant PCR <15 IU/mL
[2021-02-11 08:47] LABS: Endomysial Ab (IgA) Screen Negative (Negative)
[2021-02-12 10:04] LABS: Actin Antibody (IgG) <20 U (<20)
[2021-02-12 22:24] LABS: Mitochondrial (M2) Ab (IgG) <=20.0 U (<=20.0)
[2021-02-13 13:34] LABS: Hepatitis B Core Ab Total Nonreactive (Nonreactive); Hepatitis Be Antibody Nonreactive; Hepatitis Be Antigen Nonreactive
[2021-02-14 20:14] LABS: Tissue Transglutaminase IgA Ab 1 U/mL (<4)
== END 2021-02-08 13:28 | disposition home or self-care (01) ==
PROVIDERS: PCP Emergency Medicine; Visit Provider Nurse Practitioner Family
DX: R77.2 Abnormality of alphafetoprotein (principal); R74.01 Elevation of levels of liver transaminase levels; R93.2 Abnormal findings on diagnostic imaging of liver and biliary tract; K70.30 Alcoholic cirrhosis of liver without ascites; K80.20 Calculus of gallbladder without cholecystitis without obstruction
CPT/HCPCS: 36415; 74183; 80074; 80076; 80307; 81256; 82150; 82728; 83516; 83520; 83540; 83690; 85027; 85610; 86038; 86255; 86703; 86704; 86706; 86707; 86803; 87340; 87350; 87522; A9577; G0432

== ENCOUNTER 2021-03-24 16:09 | Outpatient (CLI) | payer OTHER, SELFPAY | END 2021-03-24 16:10 | disposition home or self-care (01) | LOC: ANHLAB 16:10 | PROVIDERS: PCP Emergency Medicine; Visit Provider Emergency Medicine | DX: R39.198 Other difficulties with micturition (principal); R82.998 Other abnormal findings in urine | CPT/HCPCS: 87086; 87088 ==

== ENCOUNTER 2021-03-29 16:49 | Outpatient (CLI) | payer OTHER, SELFPAY ==
[2021-03-29 17:16] LABS: Hematocrit 37.9 % (37.0-47.0); Hemoglobin 12.8 g/dL (12.0-15.0); Mean Corpuscular HGB Conc 33.8 g/dl (32-36); Mean Corpuscular Hemoglobin 33.9 pg (26-34); Mean Corpuscular Volume 100.3 fl (80-100); Mean Platelet Volume 11.7 fl (7.4-10.4); Platelet Count Result 198 k/mm3 (150-375); Red Blood Count 3.78 M/mm3 (4.2-5.4); Red Cell Distribution Width 25.7 % (11.5-14.5); White Blood Count 12.9 K/mm3 (4.5-10.0)
[2021-03-29 17:26] LABS: Alanine Aminotransferase 45 U/L (4-35); Albumin Level 3.9 g/dL (3.5-5.1); Alkaline Phosphatase 174 U/L (38-126); Anion Gap 10 mmol/L (8-16); Aspartate Amino Transferase 94 U/L (14-36); Bilirubin,Total 0.7 mg/dL (0.2-1.3); Blood Urea Nitrogen 3 mg/dL (7-17); Calcium 8.9 mg/dL (8.4-10.2); Carbon Dioxide 30 mmol/L (22-30); Chloride 100 mmol/L (98-107); Estimated Glomerular Filt Rate > 60; Glucose 96 mg/dL (65-110); Magnesium 1.4 mg/dL (1.6-2.3); Phosphorus 3.8 mg/dL (2.5-4.5); Potassium 3.7 mmol/L (3.4-5.0); Sodium 140 mmol/L (137-145)
[2021-03-29 17:32] LABS: INR 1.3; Prothrombin Time 15.9 Seconds (11.1-14.7)
[2021-03-29 17:33] LABS: Partial Thromboplastin Time 34.3 SECONDS (22.3-36.8)
[2021-04-01 04:51] LABS: Hepatitis A Antibody Total Nonreactive (Nonreactive); Hepatitis B Core Ab Total Nonreactive (Nonreactive); Hepatitis Be Antibody Nonreactive
== END 2021-03-29 16:50 | disposition home or self-care (01) ==
PROVIDERS: PCP Emergency Medicine; Visit Provider Internal Medicine Gastroenterology
DX: K21.9 Gastro-esophageal reflux disease without esophagitis (principal); R19.7 Diarrhea, unspecified; B15.9 Hepatitis A without hepatic coma; B16.1 Acute hepatitis B with delta-agent without hepatic coma
CPT/HCPCS: 36415; 80048; 80076; 82525; 83735; 84100; 85027; 85610; 85730; 86704; 86707; 86708; 87517

== ENCOUNTER 2021-04-02 15:28 | Outpatient (CLI) | payer OTHER, SELFPAY ==
[2021-04-06 04:45] LABS: Hepatitis B DNA PCR <1.00 Log IU/mL; Hepatitis B DNA PCR <10 IU/mL
== END 2021-04-02 15:29 | disposition home or self-care (01) ==
PROVIDERS: PCP Emergency Medicine; Visit Provider Nurse Practitioner
DX: K21.9 Gastro-esophageal reflux disease without esophagitis (principal); K59.1 Functional diarrhea; B15.9 Hepatitis A without hepatic coma; B16.1 Acute hepatitis B with delta-agent without hepatic coma
CPT/HCPCS: 36415; 82525; 87517

== ENCOUNTER 2021-04-19 18:01 | Emergency (ER) | payer OTHER, SELFPAY ==
[2021-04-19 18:10] VITALS: BP 108/65; PULSE 112; RESP 16; TEMP 37; O2SAT 99
--- NOTE | 2021-04-19 18:34 | ED.URI ---
HPI - URI/Sore Throat General Chief Complaint: Upper Respiratory Infection Stated Complaint: Cogestion Time Seen by Provider: 04/19/21 18:45 Source: patient, RN notes reviewed and old records reviewed Mode of arrival: ambulatory Limitations: no limitations History of Present Illness HPI Narrative: 35 year old female who presents [facility] with complaints of cough which is hacky, reports that she completed antibiotics recently of Augmentin for Bronchitis and she also got an inhaler. Patient denies any fevers, chills or sweats,reports feelings of wheezing but denies any acute dyspnea. Patient admits to long history of tobacco abuse and has history of alcohol abuse, admits to last drinking alcohol on Monday 3 days ago. Patient reports no known fevers, chills or sweats, reports that she has had no complaints of body aches. MD elicited complaint: cough Pertinent past history: other (bronchitis, tobacco abuse) Related Data Home Medications Medication Instructions Recorded Confirmed fluticasone propionate 1 spray INTRANASAL DAILY 11/04/20 03/24/21 loperamide 4 mg PO TID 11/04/20 03/24/21 ondansetron HCl 4 mg PO Q6H PRN 11/21/20 03/24/21 potassium chloride 20 meq PO DAILY 11/21/20 03/24/21 albuterol sulfate INHALATION 04/19/21 cetirizine mg 04/19/21 chlordiazepoxide HCl 04/19/21 famotidine 04/19/21 loperamide 04/19/21 lorazepam 04/19/21 omeprazole 04/19/21 ondansetron HCl 04/19/21 pregabalin 04/19/21 pregabalin 04/19/21 Allergies Allergy/AdvReac Type Severity Reaction Status Date / Time adhesive tape Allergy Unknown Unknown Verified 04/22/21 13:46 bee venom protein (honey bee) Allergy Unknown swelling Verified 04/22/21 13:46 sertraline [From Zoloft] Allergy Unknown Unknown Verified 04/22/21 13:46 venom-wasp Allergy Unknown swell up Verified 04/22/21 13:46 azithromycin Allergy Unknown Verified 04/22/21 13:46 Review of Systems Review of Systems: CONSTITUTIONAL: Denies fever, chills, or sweats. EYES: Denies visual changes, redness, or discharge. ENT: Positive for rhinorrhea, congestion,denies sore throat, or otalgia. CARDIOVASCULAR: Denies chest pain, palpitations, or edema. RESPIRATORY:positive for cough and wheezing denies any acute dyspnea. GASTROINTESTINAL: Denies abdominal pain, nausea, vomiting, or diarrhea. GENITOURINARY: Denies dysuria or hematuria. SKIN: Positive for abrasion to her anterior right knee from fall 2 days ago. MUSCULOSKELETAL: Denies back pain, joint pain, or myalgia. NEUROLOGIC: Denies headache, numbness, or weakness. PSYCHIATRIC: Positive for history of anxiety or depression. All systems reviewed & are unremarkable except as noted in HPI and below PMFSH Past Medical History Medical History Alcoholism Alcoholism Anxiety Chronic sinus infection Cirrhosis of liver Depression GERD (gastroesophageal reflux disease) Hepatic steatosis Hypokalemia Hypokalemia Liver mass Macrocytic anemia Due to alcohol abuse Panic attacks Panic attacks Surgical History Surgical History No significant past surgical history Family History Family History Mother , Diet at age 52 Lung cancer Father , Patient said was murdered found out doing autopsy he had cancer Cancer Mother No problems noted. Mother Lung cancer Cerebrovascular accident Father Heart attack Mother No problems noted. Other No problems noted. Social History Social History Social History: Ms. 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 She reports previously drinking around 14 shots per day of Fireball whiskey and has now cut back to 2 to 4 shots daily. She is smoking 1 half pack per day of cigarettes since age 15
== END 2021-04-19 19:15 | disposition home or self-care (01) ==
PROVIDERS: Emergency Provider Registered Nurse; PCP Emergency Medicine
DX: J06.9 Acute upper respiratory infection, unspecified (principal); R05.9 Cough, unspecified; S80.211A Abrasion, right knee, initial encounter; X58.XXXA Exposure to other specified factors, initial encounter; K74.60 Unspecified cirrhosis of liver; K21.9 Gastro-esophageal reflux disease without esophagitis; D53.9 Nutritional anemia, unspecified; F17.210 Nicotine dependence, cigarettes, uncomplicated
CPT/HCPCS: 99203; G0463

== ENCOUNTER 2021-08-26 17:52 | Emergency (ER) | payer OTHER, SELFPAY ==
[2021-08-26 18:04] VITALS: BP 117/75; PULSE 115; RESP 16; TEMP 36.6; O2SAT 96
--- NOTE | 2021-08-26 18:38 | ED.FEMALEGU ---
HPI - Female Genitourinary General Chief complaint: Urogenital-Female Stated complaint: blood in urine Time Seen by Provider: 08/26/21 18:40 Source: patient, RN notes reviewed and old records reviewed Mode of arrival: ambulatory Limitations: no limitations History of Present Illness HPI Narrative: 35-year-old female who presents to [facility] with complaints of emelyn blood in her urine which started today,, bruising on her right abdomen and right leg and arms. Patient has long history of alcohol abuse states she has not drank since June 12, 2021, her abdomen is large rounded firm to touch, sclerae is yellow. Patient reports that she has no pain to her abdomen denies any specific injury which caused bruises which she states have been there for about a week in duration. Patient denies any nausea or vomiting or diarrhea. MD elicited complaint: other (reported larege amount of blood in urine, scattered bruising on body) Related Data Home Medications Medication Instructions Recorded Confirmed fluticasone propionate 1 spray INTRANASAL DAILY 11/04/20 08/26/21 Allergies Allergy/AdvReac Type Severity Reaction Status Date / Time adhesive tape Allergy Unknown Unknown Verified 08/26/21 19:26 bee venom protein (honey bee) Allergy Unknown swelling Verified 08/26/21 19:26 sertraline [From Zoloft] Allergy Unknown Unknown Verified 08/26/21 19:26 venom-wasp Allergy Unknown swell up Verified 08/26/21 19:26 azithromycin Allergy Unknown Verified 08/26/21 19:26 Review of Systems Review of Systems: CONSTITUTIONAL: Denies fever, chills, or sweats. EYES: Denies visual changes, redness, or discharge.sclerae is yellow ENT: Denies rhinorrhea, congestion, sore throat, or otalgia. CARDIOVASCULAR: Denies chest pain, palpitations, or peripheral edema. RESPIRATORY: Denies cough or dyspnea. GASTROINTESTINAL: Denies abdominal pain,denies nausea, vomiting, or diarrhea, abdomen is large rounded with ascites. GENITOURINARY: Denies dysuria positive for gross hematuria. SKIN: Denies rash or itching.large areas of bruising to right abdomen on legs and on arms MUSCULOSKELETAL: Denies back pain, joint pain, or myalgia. NEUROLOGIC: Denies headache, numbness, or weakness, positive for history of neuropathy PSYCHIATRIC: Positive for history of anxiety or depression. All systems reviewed & are unremarkable except as noted in HPI and below PMFSH Past Medical History Medical History Alcoholism Alcoholism Anxiety Chronic sinus infection Cirrhosis of liver Depression GERD (gastroesophageal reflux disease) Hepatic steatosis Hypokalemia Hypokalemia Liver mass Macrocytic anemia Due to alcohol abuse Panic attacks Panic attacks Surgical History Surgical History No significant past surgical history Family History Family History Mother , Diet at age 52 Lung cancer Father , Patient said was murdered found out doing autopsy he had cancer Cancer Mother No problems noted. Mother Lung cancer Cerebrovascular accident Father Heart attack Mother No problems noted. Other No problems noted. Social History Social History (Updated 08/27/21 @ 01:31 by Gladis Hope NP) Social History: Ms. 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 She reports previously drinking around 14 shots per day of Fireball whiskey and has now cut back to 2 to 4 shots daily. She is smoking 1 half pack per day of cigarettes since age 15 years old. She denies other substance use. She is currently on medical leave Primary care physician: Dr. Marcus Stevenson Code status: Full code Smoking packs per day: 0.5 Smoking cigarettes per day: 10.0 Years smoked: 19 Smoking pack-years: 9.50 Smoking status: Current every
== END 2021-08-26 19:15 | disposition left against medical advice (07) ==
PROVIDERS: Emergency Provider Registered Nurse; PCP Emergency Medicine
DX: K70.40 Alcoholic hepatic failure without coma (principal); R31.0 Gross hematuria; F17.210 Nicotine dependence, cigarettes, uncomplicated; K74.60 Unspecified cirrhosis of liver; K21.9 Gastro-esophageal reflux disease without esophagitis
CPT/HCPCS: 99211; G0463